=== PATIENT | male | born 1955 | race Caucasian/White ===

== ENCOUNTER → 2021-08-15 12:57 | Outpatient (CLI) | payer MEDICARE, SELFPAY ==
[2021-08-15 13:09] LABS: Basophils # 0.1 K/mm3 (0-0.2); Basophils % 1.1 % (0.1-2.0); Eosinophils # 0.4 K/mm3 (0.0-0.4); Eosinophils % 4.8 % (0.1-12.0); Hematocrit 47.4 % (42.0-52.0); Hemoglobin 16.3 g/dL (14.1-18.0); Lymphocytes % 35.3 % (10-50); Mean Corpuscular HGB Conc 34.5 g/dL (31.8-35.4); Mean Corpuscular Volume 89.8 fl (80-94); Mean Platelet Volume 9.9 fl (7.4-10.4); Monocytes # 0.4 K/mm3 (0.1-1.0); Monocytes % 5.3 % (1.7-9.3); Neutrophils # 4.5 K/mm3 (1.8-7.8); Neutrophils % 53.5 % (37.0-80.0); Platelet Count 158 K/mm3 (142-424); Red Blood Count 5.27 M/mm3 (4.60-6.20); Red Cell Distribution Width 13.6 % (11.5-17.5); White Blood Count 8.4 K/mm3 (4.8-10.8)
[2021-08-15 13:39] LABS: Alanine Aminotransferase 24 U/L (12-78); Albumin Level 4.4 g/dl (3.5-5.0); Alkaline Phosphatase 89 U/L (38-126); Anion Gap 12.3 mEq/L (5-15); Aspartate Amino Transferase 39 U/L (17-59); Bilirubin,Direct 0.8 mg/dl (0.0-0.4); Bilirubin,Indirect 0.1 mg/dL (0.0-0.9); Bilirubin,Total 0.9 mg/dl (0.2-1.3); Bilirubin,Unconjugated 0.1 mg/dL (0.0-1.1); Blood Urea Nitrogen 13 mg/dl (9-20); Calcium 9.4 mg/dl (8.4-10.2); Carbon Dioxide 29 mmol/L (22.0-30.0); Chloride 105 mmol/L (98-107); Chol/HDL Ratio 5.4 (1-3.5); Cholesterol 184 mg/dl (140-200); Estimated Glomerular Filt Rate 43 ml/min (>60); GFR (African American) 52 ML/MIN (>60); Glucose 98 mg/dl (74-100); HDL Cholesterol 34 mg/dl (40-60); Potassium 4.3 mmoL/L (3.5-5.1); Sodium 142 mmol/L (136-145); Total Protein,Serum 7.5 g/dl (6.3-8.2); Triglycerides 242 mg/dl (30-150); VLDL Cholesterol 48 mg/dL (0-40)
[2021-08-15 13:51] LABS: Direct LDL Cholesterol 110.95 mg/dL (100-129)
[2021-08-15 13:56] LABS: Free T4 (Free Thyroxine) 0.89 ng/dl (0.78-2.19)
[2021-08-15 13:57] LABS: C-Reactive Protein 0.7 mg/L (0-4)
[2021-08-15 14:11] LABS: Thyroid Stimulating Hormone 3.27 uIU/mL (0.465-4.68)
[2021-08-15 15:55] LABS: Erythrocyte Sedimentation Rate 12 mm/hr (0-20)
[2021-08-24 10:25] LABS: 1,25 Dihydroxy Vitamin D 52 pg/mL (.); 1,25-Dihydroxy, Vitamin D-2 <10 pg/mL (.); 1,25-Dihydroxy, Vitamin D-3 52 pg/mL (.)
== END ==
PROVIDERS: Visit Provider Internal Medicine
DX: R42 Dizziness and giddiness (principal); R55 Syncope and collapse; I10 Essential (primary) hypertension
CPT/HCPCS: 36415; 80048; 80061; 80076; 82652; 84439; 84443; 85025; 85651; 86140

== ENCOUNTER → 2021-08-15 14:17 | Outpatient (CLI) | payer MEDICARE, SELFPAY ==
--- NOTE | 2021-08-15 14:19 | CA_ITS ---
APPROVED REPORT Wheel Setter: SAHRA Laterality: Bilateral Study Quality: Good Indications: bilateral carotid bruits Risk Factors Hypertension: Hyperlipidemia CAD, Smoking Doppler Spectral Velocity Analysis ECA (R) 141.10/13.90 cm/s ECA (L) 252.80/13.70 cm/s dICA (R) 118.00/31.00 cm/s dICA (L) 68.40/21.20 cm/s Maria L (R) 140.10/37.40 cm/s Maria L (L) 242.10/52.90 cm/s pICA (R) 160.40/41.70 cm/s pICA (L) 149.00/16.70 cm/s dCCA (R) 106.60/21.90 cm/s dCCA (L) 93.40/23.10 cm/s pCCA (R) 104.00/17.30 cm/s pCCA (L) 84.00/21.00 cm/s Vert (R) 19.20/6.00 cm/s Vert (L) 71.00/16.70 cm/s ICA/CCA 1.53 ICA/CCA 2.88 Findings Duplex evaluation demonstrates antegrade flow of the bilateral Vertebral Arteries. B-Mode Ultrasound demonstrates moderate intraluminal plaque in the right internal Carotid Artery and severe in L ICA. Duplex evaluation demonstrates stenosis of the right proximal internal carotid artery in the range of 50-69% with PSV =140 cm/sec, EDV <100 cm/sec, and IC/CC Ratio <4.0. Duplex evaluation demonstrates stenosis of the left proximal internal carotid artery in the range of 70-99% with PSV =140 cm/sec, EDV =100 cm/sec, or IC/CC Ratio =4.0. Extensive plaque in R CCA and R carotid bulb with stenosis. Extensive plauque in L CCA which is near occlusion. High resistance waveform with turbulent flow in the left ICA suggest a high grade of stenosis that may be near occlusion. Conclusion Duplex evaluation demonstrates antegrade flow of the bilateral Vertebral Arteries. B-Mode Ultrasound demonstrates moderate intraluminal plaque in the right internal Carotid Artery and severe in L ICA. Duplex evaluation demonstrates stenosis of the right proximal internal carotid artery in the range of 50-69% with PSV =140 cm/sec, EDV <100 cm/sec, and IC/CC Ratio <4.0. Duplex evaluation demonstrates stenosis of the left proximal internal carotid artery in the range of 70-99% with PSV =140 cm/sec, EDV =100 cm/sec, or IC/CC Ratio =4.0. Extensive plaque in R CCA and R carotid bulb with stenosis. Extensive plauque in L CCA which is near occlusion. High resistance waveform with turbulent flow in the left ICA suggest a high grade of stenosis that may be near occlusion. Critical Notification Critical Value: Yes Physician Notified Date: 08/15/2021 Time: 1300 Physician Name: Rocío Irvin Response Time: 2min Report Read Back Electronically signed by : Eugenia Haddad MD 08/16/2021 16:51:24
== END ==
PROVIDERS: PCP Nurse Practitioner; Visit Provider Internal Medicine
DX: R09.89 Other specified symptoms and signs involving the circulatory and respiratory systems (principal); R42 Dizziness and giddiness; Z79.899 Other long term (current) drug therapy
CPT/HCPCS: 36415; 80048; 80061; 80076; 82652; 84439; 84443; 85025; 85651; 86140; 93880

== ENCOUNTER 2021-08-20 14:29 | Emergency (ER) | payer MEDICARE, SELFPAY ==
--- NOTE | 2021-08-20 14:28 | ECG_ITS ---
APPROVED REPORT Exam: Resting ECG HR:71 bpm ECG Measurements Heart Rate 71 AXES RI 166 P 18 QRSd 94 QRS 23 QT 416 T 40 QTc 452 Conclusion Electronic atrial pacemaker Nonspecific ST abnormality Abnormal ECG Electronically signed by : Mic Ann MD 08/21/2021 09:03:16
[2021-08-20 14:29] VITALS: BP 185/100; PULSE 69; RESP 16; TEMP 36.4; O2SAT 97; BMI 27.1
--- NOTE | 2021-08-20 14:30 | CT_ITS ---
PROCEDURE INFORMATION: Exam: CT Head Without Contrast Exam date and time: 08/20/2021 2:30 PM Age: 65 years old Clinical indication: Dizziness and weakness, extremity; Bilateral; Additional info: Syncope TECHNIQUE: Imaging protocol: Computed tomography of the head without contrast. Radiation optimization: All CT scans at this facility use at least one of these dose optimization techniques: automated exposure control; mA and/or kV adjustment per patient size (includes targeted exams where dose is matched to clinical indication); or iterative reconstruction. Other technique: STROKE PROTOCOL was implemented. COMPARISON: US CA CAROTID DUPLEX BI 08/15/2021 2:20 PM FINDINGS: Brain: There is moderate atrophy and chronic white matter microangiopathic changes. There are focal hypodensities of the anterior corpus callosum which raise the possibility of demyelinating disease. There is a similar lesion in the right splenium of the corpus callosum on axial image 38 and sagittal image 26. Cerebral ventricles: There is compensatory ventricular dilation. Paranasal sinuses: Visualized sinuses are unremarkable. No fluid levels. Mastoid air cells: Visualized mastoid air cells are well aerated. Vasculature: The vasculature demonstrates diffuse moderate atherosclerotic calcification. Bones/joints: Unremarkable. No acute fracture. Soft tissues: Unremarkable. IMPRESSION: 1. There are focal hypodensities of the anterior corpus callosum which raise the possibility of demyelinating disease. There is a similar lesion in the right splenium of the corpus callosum on axial image 38 and sagittal image 26. 2. No acute intracranial process is identified. ASSESSMENT: ASPECTS ([place] Stroke Program Early CT Score) is 10.
--- NOTE | 2021-08-20 14:41 | CT_ITS ---
PROCEDURE INFORMATION: Exam: CT Angiography Head With Contrast, Venography Exam date and time: 08/20/2021 2:41 PM Age: 65 years old Clinical indication: Cognitive deficit and dizziness and giddiness and weakness; Altered mental status; Additional info: Possible CVA TECHNIQUE: Imaging protocol: Computed tomography angiography of the head with contrast. Exam focused on the veins. 3D rendering (Not supervised by radiologist): MIP and/or 3D reconstructed images were created by the technologist. Radiation optimization: All CT scans at this facility use at least one of these dose optimization techniques: automated exposure control; mA and/or kV adjustment per patient size (includes targeted exams where dose is matched to clinical indication); or iterative reconstruction. Contrast material: ISOVUE; Contrast volume: 100 ml; Contrast route: INTRAVENOUS (IV); COMPARISON: CT HEAD/BRAIN WO CON 08/20/2021 2:44 PM FINDINGS: Limitations: The timing of the study is incorrect with optimal opacification of the pulmonary artery. There is virtually no contrast in the systemic arterial system in the chest. Cavernous Sinus: No thrombosis. Veins: No thrombosis. Brain: Faint contrast is seen in the intracranial vessels. There is fullness at the junction of the right anterior cerebral A1 and A2 segments with the anterior communicating artery on axial image 501 which could indicate a 4 mm aneurysm. There is no obvious large vessel territorial absence of perfusion, repeat study is strongly recommended. Cerebral ventricles: No ventriculomegaly. Soft tissues: Unremarkable. Aorta: The vasculature demonstrates diffuse moderate atherosclerotic calcification. IMPRESSION: 1. The timing of the study is incorrect with optimal opacification of the pulmonary artery. There is virtually no contrast in the systemic arterial system in the chest. 2. Faint contrast is seen in the intracranial vessels. There is fullness at the junction of the right anterior cerebral A1 and A2 segments with the anterior communicating artery on axial image 501 which could indicate a 4 mm aneurysm. 3. There is no obvious large vessel territorial absence of perfusion, repeat study is strongly recommended.
--- NOTE | 2021-08-20 14:43 | PC.NURSE ---
Pt to rad.
[2021-08-20 14:47] LABS: Basophils # 0.1 K/mm3 (0-0.2); Basophils % 0.6 % (0.1-2.0); Eosinophils # 0.2 K/mm3 (0.0-0.4); Eosinophils % 1.6 % (0.1-12.0); Hematocrit 50.4 % (42.0-52.0); Hemoglobin 17.1 g/dL (14.1-18.0); Lymphocytes # 1.6 K/mm3 (0.7-4.5); Lymphocytes % 12.8 % (10-50); Mean Corpuscular Hemoglobin 31.2 pg (27.0-31.2); Mean Corpuscular Volume 91.9 fl (80-94); Mean Platelet Volume 10.1 fl (7.4-10.4); Monocytes # 0.7 K/mm3 (0.1-1.0); Monocytes % 6.1 % (1.7-9.3); Neutrophils # 9.6 K/mm3 (1.8-7.8); Neutrophils % 78.9 % (37.0-80.0); Platelet Count 164 K/mm3 (142-424); Red Blood Count 5.48 M/mm3 (4.60-6.20); Red Cell Distribution Width 13.8 % (11.5-17.5); White Blood Count 12.2 K/mm3 (4.8-10.8)
[2021-08-20 14:59] LABS: Alanine Aminotransferase 17 U/L (12-78); Albumin Level 4.7 g/dl (3.5-5.0); Albumin/Globulin Ratio 1.2 (1.1-1.8); Alkaline Phosphatase 92 U/L (38-126); Anion Gap 12.7 mEq/L (5-15); Aspartate Amino Transferase 31 U/L (17-59); Bilirubin,Total 1.9 mg/dl (0.2-1.3); Blood Urea Nitrogen 16 mg/dl (9-20); Calcium 9.7 mg/dl (8.4-10.2); Carbon Dioxide 31 mmol/L (22.0-30.0); Chloride 98 mmol/L (98-107); Creatinine Clearance Estimated 42 mL/min (50-200); Estimated Glomerular Filt Rate 30 ml/min (>60); GFR (African American) 36 ML/MIN (>60); Globulin 3.8 g/dL (1.3-3.2); Glucose 126 mg/dl (74-100); Potassium 3.7 mmoL/L (3.5-5.1); Sodium 138 mmol/L (136-145); Total Protein,Serum 8.5 g/dl (6.3-8.2)
[2021-08-20 15:01] VITALS: BP 199/96; PULSE 86; RESP 20; O2SAT 95
--- NOTE | 2021-08-20 15:02 | PC.NURSE ---
pt returned from CT. FSBS was 119 [address]
--- NOTE | 2021-08-20 15:02 | PC.NURSE ---
Pt returned from rad.
[2021-08-20 15:11] LABS: Troponin I 0.02 ng/ml (0.00-0.034)
[2021-08-20 15:30] VITALS: BP 192/109; PULSE 62; RESP 22; O2SAT 96
--- NOTE | 2021-08-20 15:32 | PC.NURSE ---
speaking with SHAINA
--- NOTE | 2021-08-20 15:35 | PC.WOUNDNOTE ---
calling [employer] at this time.
--- NOTE | 2021-08-20 15:49 | HMH.EDGENADL ---
ED Disposition Clinical Impression: Vertigo Disposition: Xfer Other Condition on Discharge: Fair Referrals: Provider,Referral, [Primary Care Provider] - - Critical Care Critical Care Time: Yes (15 min) Attestation: On 08/20/21, the high probability of a clinically significant, sudden or life threatening deterioration of the following system(s) required my full and direct attention, intervention and personal management. The time I documented below is in addition to time spent performing reported procedures but includes the following listed in this critical care notation. Total Critical Care Time: 15 Vital system(s) involved:: Central Nervous System My critical care processes included: Assessment & monitoring of V/S, Initial and Re-exams, Data Review/Interpretation, Coordinating Care, Medication Orders and management, Documentation Medical Decision Making - Kimo Inquiry Pt receiving controlled substance: No Vital Signs: 08/20/21 14:29 Temperature 97.5 F L Temperature Source Oral Pulse Rate [Right] 69 Respiratory Rate 16 Blood Pressure [Right Arm] 185/100 H Blood Pressure Mean [Right Arm] 128 Blood Pressure Source [Right Arm] Automatic Cuff Blood Pressure Position [Right Arm] Sitting 02 Sat by Pulse Oximetry 97 Oxygen Delivery Method Room Air - Lab Data Lab Results 08/20/21 14:40: WBC 12.2 H, RBC 5.48, Hgb 17.1, Hct 50.4, MCV 91.9, MCH 31.2, MCHC 34.0, RDW 13.8, Plt Count 164, MPV 10.1, Neut % (Auto) 78.9, Lymph % (Auto) 12.8, Nash % (Auto) 6.1, Eos % (Auto) 1.6, Baso % (Auto) 0.6, Neut # (Auto) 9.6 H, Lymph # (Auto) 1.6, Nash # (Auto) 0.7, Eos # (Auto) 0.2, Baso # (Auto) 0.1 08/20/21 14:40: Sodium 138, Potassium 3.7, Chloride 98, Carbon Dioxide 31 H, Anion Gap 12.7, BUN 16, Creatinine 2.20 H, Estimated Creat Clear 42, Estimated GFR 30 L, Est GFR ( Amer) 36 L, Glucose 126 H, Calcium 9.7, Total Bilirubin 1.9 H, AST 31, ALT 17, Alkaline Phosphatase 92, Troponin I 0.02, Total Protein 8.5 H, Albumin 4.7, Globulin 3.8 H, Albumin/Globulin Ratio 1.2 Result diagrams: 08/20/21 14:40 08/20/21 14:40 Orders (Tests/Meds): ED MEDICATIONS Discontinued Medications Generic Name Dose Route Start Last Admin Trade Name Billq PRN Reason Stop Dose Admin Iopamidol 100 ml 08/20/21 15:13 08/20/21 15:14 Iopamidol-370 (76%);100ml Bottle IV 08/20/21 15:14 100 ml ONCE ONE Administration Sodium Chloride 10 ml 08/20/21 15:13 08/20/21 15:14 Sodium Chloride 0.9% 10ml Syr (Rad Only) IV 08/20/21 15:14 10 ml ONCE ONE Administration Sodium Chloride 50 ml 08/20/21 15:13 08/20/21 15:14 0.9 % Sodium Chloride 50 Ml Vial IV 08/20/21 15:14 50 ml ONCE ONE Administration ORDERS Category Date Time Status CT angio neck Stat Cat Scan 08/20/21 14:41 Taken Rapid PCR Covid and Flu A/B Stat Lab 08/20/21 14:40 Ordered Troponin I Q3H Lab 08/20/21 17:45 Ordered Troponin I Q3H Lab 08/20/21 20:45 Ordered Medical Decision Narrative: In summary, the patient is a 65-year-old male with metabolic syndrome who presents for evaluation of vertigo, alteration in mental status and transient right arm numbness, syncope. He is in no acute distress, afebrile and hemodynamically stable, nontoxic in appearance. Physical exam demonstrates a disoriented male with positive test of skew in the right eye, negative head impulse testing, no nystagmus, normal sensory and motor exam, normal cardiopulmonary exam, soft nontender abdomen. Differential diagnosis includes but not limited to cardiogenic or neurogenic syncope, electrolyte abnormality, YUMI, acute embolic or hemorrhagic stroke, other acute intracranial abnormality. Will obtain emergent CT and CTA of the head and neck, broad laboratory analysis and reassess clinically. Fingerstick blood glucose on initial evaluation is normal, patient is hypertensive with systolic blood pressure in the 170s 180s but is otherwise hemodynamically stable. Reassessment: Haseeb
--- NOTE | 2021-08-20 15:49 | PC.NURSE ---
[place] 2 checking flight status
--- NOTE | 2021-08-20 15:51 | PC.NURSE ---
susans aware that if flight is declined they will need to transport pt.
--- NOTE | 2021-08-20 15:58 | PC.NURSE ---
advised pt's b/p is ok at this time and he didn't want it lowered too quickly.
[2021-08-20 16:00] VITALS: BP 194/104; PULSE 72; RESP 24; O2SAT 95
--- NOTE | 2021-08-20 16:00 | PC.NURSE ---
Calling report to [facility]
[2021-08-20 16:16] VITALS: BP 196/106; PULSE 87; RESP 16; TEMP 36.8; O2SAT 98
== END 2021-08-20 16:34 | disposition short-term general hospital (02) ==
PROVIDERS: Emergency Provider Student in an Organized Health Care Education/Training Program; PCP Nurse Practitioner
DX: R42 Dizziness and giddiness (principal); I25.10 Atherosclerotic heart disease of native coronary artery without angina pectoris; I10 Essential (primary) hypertension; I65.23 Occlusion and stenosis of bilateral carotid arteries; F17.210 Nicotine dependence, cigarettes, uncomplicated; Z79.899 Other long term (current) drug therapy
CPT/HCPCS: 70450; 70496; 70498; 80053; 84484; 85025; 93005; 99284; Q9967

== ENCOUNTER 2022-07-18 11:35 | Inpatient (IN) | payer MEDICARE, SELFPAY ==
[2022-07-18 11:43] VITALS: BP 185/87; PULSE 73; RESP 18; TEMP 36.3; O2SAT 99; BMI 28.1
--- NOTE | 2022-07-18 11:51 | PC.NURSE ---
pt arrived to the floor at this time
--- NOTE | 2022-07-18 12:51 | PC.NURSE ---
Unable to complete med rec, pt doesn't know what he takes
[2022-07-18 13:57] LABS: Coronavirus 19, PCR Not Detected (NotDetected); Influenza A, PCR Not Detected (NotDetected); Influenza B, PCR Not Detected (NotDetected)
--- NOTE | 2022-07-18 14:02 | PC.NURSE ---
Pt is a poor historian, admission completed to the best of my ability
[2022-07-18 14:15] VITALS: BP 164/63
--- NOTE | 2022-07-18 14:56 | US_ITS ---
PROCEDURE INFORMATION: Exam: US Retroperitoneal; Complete; Kidneys and Bladder Exam date and time: 07/18/22 04:19 PM Age: 66 years old Clinical indication: Other: Hypertension; Additional info: Malignant HTN, ckd TECHNIQUE: Imaging protocol: Real-time ultrasound of the retroperitoneum with image documentation. Complete exam focused on the kidneys and bladder. COMPARISON: US CA RENAL ARTERY DUPLEX 07/18/22 03:34 PM FINDINGS: Gallbladder: Cholelithiasis. Right kidney: Right kidney measures 11.5 cm longitudinally. Increased renal cortical echotexture with cortical thinning consistent with medical renal disease. Left kidney: Left kidney measures 13.7 cm longitudinally. Urinary bladder: Unremarkable. IMPRESSION: 1. Increased renal cortical echotexture with cortical thinning on the right. Unilateral finding, consider renovascular versus medical renal etiology. 2. Incidental cholelithiasis.
--- NOTE | 2022-07-18 14:56 | CA_ITS ---
FINAL REPORT CLINICAL HISTORY: malignant HTN,SMOKER,CVA FINDINGS: Aorta velocity: 82 cm/sec Right kidney: 10.1 cm. No evidence of hydronephrosis or mass. Right intrarenal RI: 0.63 Right renal artery velocity: 148 cm/sec. Right RAR (Renal artery-Aortic Ratio): 1.8 Left Kidney: 12.7 cm. No evidence of hydronephrosis or mass. Left intrarenal RI: 0.70 Left renal artery velocity: 347 cm/sec. Left RAR (Renal Artery-Aortic Ratio): 4.21 Incidental note of gallstones. IMPRESSION: Greater than 60% left renal artery stenosis. Recommend CTA or MRA. Less than 60% right renal artery stenosis. Incidental cholelithiasis. Reviewed, Interpreted and Dictated by Torres Eason MD Transcribed by Julio Duff Authenticated and [facility]
--- NOTE | 2022-07-18 15:08 | EXP.CARD.PN ---
Subjective Subjective Date: 07/18/22 Time: 15:08 Principal diagnosis: Malignant hypertension Interval history: Cardiology office note from earlier today: pt here for overdue follow up. CAD is present and likely stable. Hx of [place] to LAD and diagonal arteries. On ASA. Denies cp & pressure Denies SOB Dizziness & lightheadedness present pretty constant now, blurry vision present at times. He states he is feeling really bad right now and he hasn't had his BP meds for several days. Hx of subclavian artery stenosis with stenting. JESUS ALBERTO is present. hx of right carotid stent. Hx of carotid endarectomy in 09/2021 at , we have requested the report. BP is too high today. Weight is up 6 pounds. LDL goal is < 55, LDL is not on file. PPM in place and D/L today showed: AP 73%, AT/AF [place] <1%, no events, battery life of 28 months. DM is present and followed by PCP. Tobacco user. Tobacco cessation advised. EKG is A-pacing, possible inferior infarct, age undetermined, rate is 81 bpm. Due to the patient's malignant HTN will get him admitted to Dr. Keller to get better control of BP. Exam Data for Last 24 hours Vital signs and Labs for Last 24 Hours: Temp Pulse Resp BP Pulse Ox 97.3 F L 73 18 185/87 H 99 07/18/22 11:43 07/18/22 11:43 07/18/22 11:43 07/18/22 11:43 07/18/22 11:43 I & O for Last 24 hours: Intake & Output 07/16/22 07/17/22 07/18/22 07/19/22 11:59 11:59 11:59 11:59 Weight 207 lb 6 oz Constitutional Constitutional: no acute distress *Routine Respiratory Exam Respiratory: Present CTA bilaterally *Routine Cardiovascular Exam Cardiovascular: Present RRR *Routine Extremities Exam Extremities: Absent edema Progress Note: A&P Assessment and plan (1) Malignant hypertension: Status: Acute (2) Carotid artery stenosis: Status: Chronic (3) Bilateral carotid bruits: Status: Chronic (4) CAD (coronary artery disease): Status: Chronic (5) HTN (hypertension): Status: Chronic (6) HLD (hyperlipidemia): Status: Chronic (7) Pacemaker: Status: Acute Assessment and Plan Assessment and Plan for All Diagnoses:: 1. Patient admitted for malignant hypertension. Resume home medication of carvedilol 25 mg twice daily. Will assess renal status and decide on continuing lisinopril or not. We will give additional antihypertensive in the form of amlodipine 5 mg twice daily. Will check renal ultrasound and duplex for renal artery stenosis. 2. Peripheral vascular disease with history of subclavian artery stenosis and carotid artery stenosis. Coronary artery disease with history of coronary stenting continue Plavix 75 mg daily. 3. History of GERD, continue PPI therapy 4. History of CKD, await BMP
[2022-07-18 15:41] LABS: Basophils # 0.1 K/mm3 (0-0.2); Basophils % 1.9 % (0.1-2.0); Eosinophils # 0.4 K/mm3 (0.0-0.4); Hemoglobin 15.9 g/dL (14.1-18.0); Lymphocytes # 2.7 K/mm3 (0.7-4.5); Lymphocytes % 36.9 % (10-50); Mean Corpuscular HGB Conc 35.3 g/dL (31.8-35.4); Mean Corpuscular Hemoglobin 31.5 pg (27.0-31.2); Mean Corpuscular Volume 89.2 fl (80-94); Mean Platelet Volume 10.2 fl (7.4-10.4); Monocytes # 0.5 K/mm3 (0.1-1.0); Monocytes % 6.3 % (1.7-9.3); Neutrophils # 3.5 K/mm3 (1.8-7.8); Neutrophils % 48.9 % (37.0-80.0); Platelet Count 147 K/mm3 (142-424); Red Blood Count 5.05 M/mm3 (4.60-6.20); Red Cell Distribution Width 13.6 % (11.5-17.5); White Blood Count 7.3 K/mm3 (4.8-10.8)
[2022-07-18 15:52] LABS: Chloride 104 mmol/L (98-107); Sodium 141 mmol/L (136-145)
[2022-07-18 15:53] LABS: Potassium 3.8 mmoL/L (3.5-5.1)
[2022-07-18 15:56] LABS: Anion Gap 12.8 mEq/L (5-15); Blood Urea Nitrogen 13 mg/dl (9-20); Calcium 8.5 mg/dl (8.4-10.2); Carbon Dioxide 28 mmol/L (22.0-30.0); Chol/HDL Ratio 7.4 (1-3.5); Cholesterol 214 mg/dl (140-200); Creatinine Clearance Estimated 86 mL/min (50-200); Estimated Glomerular Filt Rate 67 ml/min (>60); GFR (African American) 81 ML/MIN (>60); Glucose 97 mg/dl (74-100); HDL Cholesterol 29 mg/dl (40-60)
[2022-07-18 16:00] VITALS: BP 163/66; PULSE 64; RESP 16; TEMP 36.8; O2SAT 96
[2022-07-18 16:05] LABS: Triglycerides 809 mg/dl (30-150)
[2022-07-18 16:07] LABS: Direct LDL Cholesterol 86.63 mg/dL (100-129)
--- NOTE | 2022-07-18 16:12 | PC.NURSE ---
Pt was a direct admit for malignant hypertension. BP was 185/87 on admission. 25mg coreg po and 10mg lisinopril po administered shortly after admission. BP on reassessment was 164/93. He is alert and oriented x4. Lungs are clear, he remains on RA with no distress. He denies cp or sob. Heart has a regular rate and rhythm. Med rec completed using external medication list. Pt says he is unsure what he is prescribed. He also states that he quit taking his meds a while ago because he had trouble walking. He is currently resting in bed watching tv. Bed is locked and in the lowest position, call light is within reach.
[2022-07-18 16:14] LABS: T4 (Thyroxine) 8.1 ug/dl (5.53-11.0)
[2022-07-18 16:27] LABS: Thyroid Stimulating Hormone 2.44 uIU/mL (0.465-4.68)
[2022-07-18 16:57] LABS: Free Thyroxine Index 2.3 ug/dL (5.93-13.13); Triiodothryronine (T3) Uptake 28 % (23.5-40.5)
--- NOTE | 2022-07-18 18:37 | PC.NURSE ---
I just assisted pt to the bsc to have a bm. While cleaning pt up and assisting her back to the chair she stated that she thinks she's hallucinating. She reports seeing clowns, a man who is trying to hurt her and possibly others. I reoriented pt and assured her that she was safe and that no one was going to harm her here. Her spouse is at bedside and attempting to comfort her as well.
--- NOTE | 2022-07-18 19:45 | PC.NURSE ---
1944 was noted that pt was not in room when making rounds, pt had left floor and went outside to smoke, pts went with him, tech went to find pt and he was outside in front of hospital, upon return to floor pt was instructed to remain in his room, on floor, also instructed pt on smoking effects on high blood pressure, pt verbalized understanding, dr breaux made aware of pt leaving floor without notifying staff, order for ativan received 0.5mg pt x1 dose repeated and verified.
[2022-07-18 20:00] VITALS: BP 142/86; PULSE 73; RESP 19; TEMP 36.7; O2SAT 94
[2022-07-19] VITALS (21 sets, daily range): BP systolic 119–197; BP diastolic 61–97; PULSE 60–80; RESP 16–19; TEMP 36.4–36.8; O2SAT 92–97; BMI 28.0
--- NOTE | 2022-07-19 04:54 | PC.NURSE ---
pt slept most of the night after ativan dose given as ordered, no acute distress, VSS, lungs CTA bilaterally, heart RRR, abd soft non distended, pt voiding without difficulty, pt without edema, alert and oriented x4, skin pwd, pts at bedside, it was noted at beginning of shift that pt left the floor to go outside and did not inform nursing staff, pt educated on the risks of smoking and hypertension, and instructed that going outside is not warranted at this time. pt states that he did smoke when he went outside, pt refuses nicotine patch, no other issues or concerns at this time,
[2022-07-19 06:57] LABS: Anion Gap 12.5 mEq/L (5-15); Blood Urea Nitrogen 14 mg/dl (9-20); Calcium 8.7 mg/dl (8.4-10.2); Carbon Dioxide 26 mmol/L (22.0-30.0); Chloride 105 mmol/L (98-107); Creatinine Clearance Estimated 72 mL/min (50-200); Estimated Glomerular Filt Rate 55 ml/min (>60); GFR (African American) 66 ML/MIN (>60); Glucose 93 mg/dl (74-100); Potassium 3.5 mmoL/L (3.5-5.1); Sodium 140 mmol/L (136-145)
--- NOTE | 2022-07-19 07:28 | P.CONPHA_ITS ---
[facility] Pharmacy VTE Monitoring Patient Demographics Admission date: 07/18/22 Report Date: 07/19/22 Time: : Patient Allergies No Known Allergies Allergy (Verified 07/18/22 11:18) Height: 1.83 m Weight: 94 kg VTE Risk Labs: VTE Related Lab Results Hgb 15.9 g/dL (14.1-18.0) 07/18/22 15:24 Hct 45.0 % (42.0-52.0) 07/18/22 15:24 Plt Count 147 K/mm3 (142-424) 07/18/22 15:24 BUN 14 mg/dl (9-20) 07/19/22 06:22 Creatinine 1.30 mg/dl (0.66-1.25) H 07/19/22 06:22 Estimated Creat Clear 72 mL/min (50-200) 07/19/22 06:22 Was VTE Risk Assessment Performed: Yes VTE Score: 4 VTE Risk Level: Low Risk Prophylaxis VTE Prophylaxis Ordered?: Yes Types of VTE Prophylaxis: TEDS Knee High Location of Applied Device: Bilateral Lower Extremeties
--- NOTE | 2022-07-19 10:01 | HMH.PHAINT1 ---
Pharmacy Intervention Comments: Home medication reconciliation completed using outpatient pharmacy list, med rec from office visit on 07/18/22 and interview with patient.
--- NOTE | 2022-07-19 10:29 | EXP.CARD.PN ---
Subjective Subjective Date: 07/19/22 Time: 10:29 Principal diagnosis: Malignant hypertension Interval history: 66-year-old white male in bed in no acute distress. Patient denies any chest pain, pressure or tightness overnight. Tolerating medication well with blood pressure control improved to the 120-140 mmHg range systolic. Discussed the results of renal ultrasound demonstrating left renal artery stenosis of greater than 60% with the patient who has a initially declined further treatment at this time. Discussed with Dr. Irvin who will come talk to the patient about having it done while he is here Exam Data for Last 24 hours Vital signs and Labs for Last 24 Hours: Temp Pulse Resp BP Pulse Ox 97.6 F 71 17 143/76 H 92 L 07/19/22 08:00 07/19/22 08:00 07/19/22 08:00 07/19/22 08:00 07/19/22 08:00 Laboratory Results - last 24 hr 07/18/22 13:50: SARS-CoV-2 (PCR) Not detected, Influenza A Untype (PCR) Not detected, Influenza Type B (PCR) Not detected 07/18/22 15:24: WBC 7.3, RBC 5.05, Hgb 15.9, Hct 45.0, MCV 89.2, MCH 31.5 H, MCHC 35.3, RDW 13.6, Plt Count 147, MPV 10.2, Neut % (Auto) 48.9, Lymph % (Auto) 36.9, [place] % (Auto) 6.3, Eos % (Auto) 6.0, Baso % (Auto) 1.9, Neut # (Auto) 3.5, Lymph # (Auto) 2.7, [place] # (Auto) 0.5, Eos # (Auto) 0.4, Baso # (Auto) 0.1 07/18/22 15:24: Sodium 141, Potassium 3.8, Chloride 104, Carbon Dioxide 28, Anion Gap 12.8, BUN 13, Creatinine 1.10, Estimated Creat Clear 86, Estimated GFR 67, Est GFR ( Amer) 81, Glucose 97, Calcium 8.5 07/18/22 15:24: Triglycerides 809 H, Cholesterol 214 H, LDL Cholesterol Direct 86.63 L, HDL Cholesterol 29 L, Cholesterol/HDL Ratio 7.4 H 07/18/22 15:24: TSH 2.44, Free T4 Index 2.3 L, Thyroxine (T4) 8.1, T3 Uptake 07/19/22 06:22: Sodium 140, Potassium 3.5, Chloride 105, Carbon Dioxide 26, Anion Gap 12.5, BUN 14, Creatinine 1.30 H, Estimated Creat Clear 72, Estimated GFR 55 L, Est GFR ( Amer) 66, Glucose 93, Calcium 8.7 I & O for Last 24 hours: Intake & Output 07/16/22 07/17/22 07/18/22 07/19/22 11:59 11:59 11:59 11:59 Intake Total 480 / 480 Output Total 300 / 300 Balance 180 / 180 Weight 207 lb 6 oz 207 lb 3.752 oz Constitutional Constitutional: no acute distress *Routine Respiratory Exam Respiratory: Present rhonchi *Routine Cardiovascular Exam Cardiovascular: Present RRR Progress Note: A&P Assessment and plan (1) Malignant hypertension: Status: Acute (2) Carotid artery stenosis: Status: Chronic (3) Bilateral carotid bruits: Status: Chronic (4) CAD (coronary artery disease): Status: Chronic (5) HTN (hypertension): Status: Chronic (6) HLD (hyperlipidemia): Status: Chronic (7) Pacemaker: Status: Acute (8) Left renal artery stenosis: Status: Acute (9) Hypertriglyceridemia: Status: Acute Assessment and Plan Assessment and Plan for All Diagnoses:: 1. Patient admitted for malignant hypertension. Improved control on Coreg 25 mg twice daily and Norvasc 5 mg daily. 2. Peripheral vascular disease with history of subclavian artery stenosis and carotid artery stenosis. Medical therapy recommended, 08/2021. 3. Coronary artery disease with history of coronary stenting, continue Plavix 75 mg daily. 4. History of GERD, continue PPI therapy 5. History of CKD with left renal artery stenosis by ultrasound, creatinine currently 1.1-1.3. We will hold off on lisinopril at this time. Dr. Irvin discussed need for renal angiogram in conjunction with blood pressure management. Patient agreed to proceed with renal angiogram today. Plan to keep him overnight to monitor his blood pressure post stenting with plans to discharge home tomorrow. 6. Hypertriglyceridemia and dyslipidemia. Resume fenofibrate.
--- NOTE | 2022-07-19 13:00 | IR_ITS ---
APPROVED REPORT Patient Location: Inpatient Metal Floor[employer] Installer: LEILA Greenberg RT (R) PROCEDURES Bilateral selective renal angiography Bare-metal stent deployment to the right renal artery Bare-metal stent deployment to the left renal artery INDICATION Abnormal renal duplex, Renal artery stenosis, Malignant hypertension, Renovascular hypertension Informed consent was obtained prior to the procedure. COMPLICATIONS None Estimated Blood Loss: Less than 10 mls TECHNIQUE 1% lidocaine used to anesthetize the right femoral groin. The right femoral artery was accessed via the Seldinger technique. A 4 Turkish sheath was placed in the right femoral artery. The JR4 catheter was used to selectively intubate each renal artery. At the end the diagnostic procedure the 4 Turkish sheath was exchanged for a 7 Turkish sheath and therapeutic heparin was administered giving a therapeutic ACT. A short 7 Turkish HAMILTON guide catheter was placed in the right renal artery followed by a Choice PT extra-support wire. A 6 mm x 15 mm bare-metal Herculink stent was deployed at 14 cassi reducing the severe stenosis to 0% excellent angiographic results were obtained. This procedure was repeated in the left kidney using a 6.5 x 15 mm Herculink stent deployed at 18 cassi. Excellent angiograph results were obtained with wide patency of both renal arteries at the end the procedure. At the end the procedure the apparatus was removed the groin is reprepped closure change sheath was removed and hemostasis achieved using Perclose device patient was transferred the postop putting in stable addition ANGIOGRAPHIC RESULTS Right renal artery has an ostial 90% stenosis Left renal artery has an ostial 70% hazy stenosis IMPRESSION Severe bilateral renal artery stenosis Successful stenting of the right and left renal artery severe disease reduced to 0% with 1 bare-metal stent placed in each renal artery PLAN 1. Dual antiplatelet for 1 month then discontinuation of Plavix 2. Restart JORY inhibitor's as blood pressure will allow 3. Continue with carvedilol 4. Continue risk factor modification Electronically signed by : Cain Irvin MD 07/19/2022 12:32:29
[2022-07-19 13:03] LABS: CATHL Activated Clotting Time 261 SEC (74-125)
--- NOTE | 2022-07-19 13:05 | EXP.HP ---
History of Present Illness *Admission Date: 07/18/22 *Reason for visit:: HTN *History of present illness: 66-year-old male patient admitted from cardiology clinic for dizziness & lightheadedness present pretty constant now, blurry vision present at times. He states he is feeling really bad right now and he hasn't had his BP meds for several days. Blood pressure this morning 140s/70s, he denies any chest pain, shortness of breath, dizziness, or lightheadedness. is present in room Hx of [facility]clavian [facility] [place] [facility] PFSH PFS Medical History (Updated 07/19/22 @ 10:35 by GLORIA Sanabria) Bilateral carotid bruits CAD (coronary artery disease) Cerebrovascular accident (CVA) Chest pain Dizziness HLD (hyperlipidemia) HTN (hypertension) Pacemaker Subclavian arterial stenosis Syncope Surgical History (Updated 07/18/22 @ 14:01 by Valery Grey, RN) H/O cardiac catheterization History of permanent cardiac pacemaker placement Family History (Updated 07/18/22 @ 14:01 by Valery Grey, RN) Other No significant family history Social History (Updated 07/18/22 @ 14:02 by Valery Grey, RN) Smoking Status: Current every day smoker alcohol intake: never substance use type: denies use current occupational status: retired and other Travel in the last 8 weeks: Inside the [place] household members: spouse housing: house Review of Systems Constitutional Constitutional: Reports system reviewed and no additional complaints, except as documented, Reports fatigue and Reports headache(s) Eyes Eyes: Reports blurry vision and Reports change in vision ENT Ears, Nose, Mouth, and Throat: Reports system reviewed and no additional complaints, except as documented, Reports dizziness, Reports headache(s) and Denies tongue swelling *Cardiovascular Cardiovascular: Reports system reviewed and no additional complaints, except as documented, Denies chest pain at rest and Denies dyspnea *Respiratory Respiratory: Reports system reviewed and no additional complaints, except as documented and Denies dyspnea *Gastrointestinal Gastrointestinal: Reports system reviewed and no additional complaints, except as documented, Denies change in stool character and Denies nausea *Genitourinary Genitourinary: Reports system reviewed and no additional complaints, except as documented *Musculoskeletal Musculoskeletal: Reports system reviewed and no additional complaints, except as documented and Denies arthralgias Integumentary/Breasts Skin/Breast: Reports system reviewed and no additional complaints, except as documented and Denies jaundice *Neurologic Neurologic: Reports system reviewed and no additional complaints, except as documented, Reports dizziness and Reports headache(s) Psychiatric Psychiatric: Reports system reviewed and no additional complaints, except as documented Endocrine Endocrine: Reports system reviewed and no additional complaints, except as documented, Denies cold intolerance, Reports fatigue and Denies heat intolerance Hematologic/Lymphatic Hematologic/Lymphatic: Reports system reviewed and no additional complaints, except as documented and Denies easy bleeding Allergic/Immunologic Allergic/Immunologic: Reports system reviewed and no additional complaints, except as documented, Denies GI upset with certain foods and Denies tongue swelling Meds Home Medications and Allergies Home Medications Medication Instructions Recorded Confirmed Type cholecalciferol (vitamin D3) 1,250 1,250 mcg PO DAILY Supplement 08/15/21 07/19/22 History mcg (50,000 unit) capsule pantoprazole 40 mg tablet,delayed 40 mg PO DAILY acid reflux 08/15/21 07/18/22 History release tamsulosin 0.4 mg capsule 0.4 mg PO DAILY benign prostatic 08/15/21 07/18/22 History hyperplasia clopidogrel 75 mg tablet 75 mg PO DAILY Blood thinner 09/06/21 07/18/22 History amlodipine 5 mg tablet (Norvasc) 5
--- NOTE | 2022-07-19 15:20 | CT_ITS ---
FINAL REPORT TECHNIQUE: Axial images of the head was performed by computed tomography. Sagittal and coronal reformatted images were obtained and reviewed. This study was performed with techniques to keep radiation doses as low as reasonably achievable (ALARA). Individualized dose reduction techniques using automated exposure control or adjustment of mA and/or kV according to the patient's size were employed. CLINICAL HISTORY: angioedema hx of stroke COMPARISON: 08/20/2021 FINDINGS: There is a chronic lacunar infarct in the left frontal periventricular white matter. There are moderate chronic microvascular changes. No abnormal density is seen. Ventricles are normal. There is no hemorrhage. No mass effect is seen. Bone windows show no evidence of fracture. IMPRESSION: Chronic changes without acute findings. Reviewed, Interpreted and Dictated by Torres Eason MD Transcribed by Veronica Kaufman Authenticated and [facility]
--- NOTE | 2022-07-19 18:40 | PC.NURSE ---
Pt is A/Ox4. He went [facility] and had 2 stents placed. When he came back from [facility] he slept for about two hours. He woke up with his tongue swollen, mumbled speech, and stated that he feels like he cannot swoller . Robbie Reyes was called looked at the patient. He was given 50 mg of benadryl, and 125mg of solumedrol IV. He since has seem to subside. Did a bedside swallow with him, and he tolerated water well. So I allowed him to eat and has tolerated fine. He has ambulated to the bathroom and had a BM. He has a right femoral site and it is clean, dry, and intact. His is at bedside with him. Pt is hard of hearing.
[2022-07-20] VITALS (26 sets, daily range): BP systolic 128–181; BP diastolic 66–96; PULSE 59–720; RESP 16–20; TEMP 36.5–36.9; O2SAT 90–96; BMI 28.7
--- NOTE | 2022-07-20 04:38 | PC.NURSE ---
pt rested well through the night, no acute distress, respiratory with lungs cta bilaterally, 02 sats 91-92 on room air, heart RRR, abd soft, voiding without difficulty, no edema, pt is alert and oriented x4; VSS, no other issues or concerns at this time, b/p's with sbp's 135-158 and diastolics 69-78
--- NOTE | 2022-07-20 05:40 | PC.NURSE ---
Addendum entered by Lesvia Perdomo RN 07/20/22 06:55: pt denies any issues with previous tongue swelling, pt denies any difficulty in swallowing, pt has eaten without difficulty through the night Original Note: pt states voiding without difficulty, pt is not using urinal, pt ambulates by self to bathroom to void, pt stated he is voiding without difficulty.
[2022-07-20 06:48] LABS: Anion Gap 13.9 mEq/L (5-15); Blood Urea Nitrogen 15 mg/dl (9-20); Calcium 9.2 mg/dl (8.4-10.2); Carbon Dioxide 24 mmol/L (22.0-30.0); Chloride 104 mmol/L (98-107); Creatinine Clearance Estimated 69 mL/min (50-200); Estimated Glomerular Filt Rate 50 ml/min (>60); GFR (African American) 61 ML/MIN (>60); Glucose 193 mg/dl (74-100); Potassium 3.9 mmoL/L (3.5-5.1); Sodium 138 mmol/L (136-145)
--- NOTE | 2022-07-20 08:24 | EXP.CARD.PN ---
Subjective Subjective Date: 07/20/22 Time: 08:24 Principal diagnosis: Malignant hypertension Interval history: 66-year-old white male in bed in no acute distress. Feeling of swollen tongue and difficulty swallowing has resolved overnight. CTA of the head showed no acute changes but with chronic lacunar infarct in the left frontal periventricular white matter. Moderate chronic microvascular changes. Creatinine today is 1.4. Blood pressure overnight is in the 130-160 mmHg systolic range. Exam Data for Last 24 hours Vital signs and Labs for Last 24 Hours: Temp Pulse Resp BP Pulse Ox 97.7 F 78 18 135/75 91 L 07/20/22 03:53 07/20/22 03:53 07/20/22 03:53 07/20/22 03:53 07/20/22 03:53 Laboratory Results - last 24 hr 07/19/22 12:19: Activated Clotting Time 261 H* 07/20/22 06:14: Sodium 138, Potassium 3.9, Chloride 104, Carbon Dioxide 24, Anion Gap 13.9, BUN 15, Creatinine 1.40 H, Estimated Creat Clear 69, Estimated GFR 50 L, Est GFR ( Amer) 61, Glucose 193 H D, Calcium 9.2 I & O for Last 24 hours: Intake & Output 07/17/22 07/18/22 07/19/22 07/20/22 11:59 11:59 11:59 11:59 Intake Total 480 / 480 240 / 240 Output Total 300 / 300 300 / 300 Balance 180 / 180 -60 / -60 Weight 207 lb 6 oz 207 lb 3.752 oz 212 lb 1.355 oz Constitutional Constitutional: no acute distress *Routine Respiratory Exam Respiratory: Present CTA bilaterally *Routine Cardiovascular Exam Cardiovascular: Present RRR *Routine Neurological Exam Neurological: Present alert and oriented X3 Progress Note: A&P Assessment and plan (1) Malignant hypertension: Status: Acute (2) Hypertriglyceridemia: Status: Acute (3) Pacemaker: Status: Acute (4) Carotid artery stenosis: Status: Chronic (5) Cerebrovascular accident (CVA): Status: Acute (6) CAD (coronary artery disease): Status: Chronic (7) Subclavian arterial stenosis: Status: Chronic (8) Bilateral renal artery stenosis: Status: Acute (9) Bilateral carotid bruits: Status: Chronic (10) HTN (hypertension): Status: Chronic (11) HLD (hyperlipidemia): Status: Chronic (12) Left renal artery stenosis: Status: Acute Assessment and Plan Assessment and Plan for All Diagnoses:: 1. Patient admitted for malignant hypertension. Improved control on Coreg 25 mg twice daily and Norvasc 5 mg daily. 2. Peripheral vascular disease with history of subclavian artery stenosis and carotid artery stenosis. Medical therapy recommended, 08/2021. 3. Coronary artery disease with history of coronary stenting, continue Plavix 75 mg daily. 4. History of GERD, continue PPI therapy 5. History of CKD with bilateral renal artery stenosis, status post bilateral renal artery stenting yesterday. Today creatinine 1.4And GFR 50. 6. Hypertriglyceridemia and dyslipidemia. Resume fenofibrate. Okay from cardiology standpoint for discharge home. Home medication recommendations: Carvedilol 25 mg twice daily Norvasc 5 mg daily (he may take an additional 5 mg for blood pressure greater than 150 mmHg systolic) Clopidogrel 75 mg daily Fenofibrate 134 mg daily Protonix 40 mg daily Aspirin 81 mg daily Hold lisinopril for now. Will consider restarting at follow-up visit 1 week Follow-up with Dr. Irvin in 1 week.
--- NOTE | 2022-07-20 09:08 | EXP.DC.SUM ---
General Admission date:: 07/18/22 Discharge date: 07/20/22 HPI HPI HPI: 66-year-old male patient admitted from cardiology clinic for dizziness & lightheadedness present pretty constant now, blurry vision present at times. He states he is feeling really bad right now and he hasn't had his BP meds for several days. Blood pressure this morning 140s/70s, he denies any chest pain, shortness of breath, dizziness, or lightheadedness. is present in room Hx of subclavian artery stenosis with stenting at [facility] in [place] 10/11. Hospital Course Hospital Course Hospital Course: 66 year-old male patient admitted from cardiology clinic for dizziness & lightheadedness present pretty constant now, blurry vision present at times. 07/18/22 Renal US: FINDINGS: Gallbladder: Cholelithiasis. Right kidney: Right kidney measures 11.5 cm longitudinally. Increased renal cortical echotexture with cortical thinning consistent with medical renal disease. Left kidney: Left kidney measures 13.7 cm longitudinally. Urinary bladder: Unremarkable. IMPRESSION: 1. Increased renal cortical echotexture with cortical thinning on the right. Unilateral finding, consider renovascular versus medical renal etiology. 2. Incidental cholelithiasis. Electronically signed by Sorin Ortega MD 07/19/[address]: FINDINGS: There is a chronic lacunar infarct in the left frontal periventricular white matter.? There are moderate chronic microvascular changes.? No abnormal density is seen.? Ventricles are normal.? There is no hemorrhage.? No mass effect is seen. Bone windows show no evidence of fracture. IMPRESSION: Chronic changes without acute findings. Reviewed, Interpreted and Dictated by Torres Eason MD 07/19/2022 bilateral renall artery angiography: ANGIOGRAPHIC RESULTS Right renal artery has an ostial 90% stenosis Left renal artery has an ostial 70% hazy stenosis IMPRESSION Severe bilateral renal artery stenosis Successful stenting of the right and left renal artery severe disease reduced to 0% with 1 bare-metal stent placed in each renal artery PLAN 1. Dual antiplatelet for 1 month then discontinuation of Plavix 2. Restart JORY inhibitor's as blood pressure will allow 3. Continue with carvedilol 4. Continue risk factor modification Electronically signed by : Cain Irvin MD Cardiology has seen and recommends: Assessment and Plan for All Diagnoses:: 1.? Patient admitted for malignant hypertension.? Improved control on Coreg 25 mg twice daily and Norvasc 5 mg daily. 2.? Peripheral vascular disease with history of subclavian artery stenosis and carotid artery stenosis.? Medical therapy recommended, 08/2021. 3.? Coronary artery disease with history of coronary stenting, continue Plavix 75 mg daily. 4.? History of GERD, continue PPI therapy 5.? History of CKD with bilateral renal artery stenosis, status post bilateral renal artery stenting yesterday.? Today creatinine 1.4And GFR 50. 6.? Hypertriglyceridemia and dyslipidemia. Resume fenofibrate. Okay from cardiology standpoint for discharge home. Home medication recommendations: Carvedilol 25 mg twice daily Norvasc 5 mg daily (he may take an additional 5 mg for blood pressure greater than 150 mmHg systolic) Clopidogrel 75 mg daily Fenofibrate 134 mg daily Protonix 40 mg daily Aspirin 81 mg daily Hold lisinopril for now.? Will consider restarting at follow-up visit 1 week Follow-up with Dr. Irvin in 1 week. Exam Data for Last 24 hours Vital signs and Labs for Last 24 Hours: Temp Pulse Resp BP Pulse Ox 97.9 F 77 17 139/79 91 L 07/20/22 08:00 07/20/22 08:00 07/20/22 08:00 07/20/22 08:00 07/20/22 08:00 Laboratory Results - last 24 hr 07/19/22 12:19: Activated Clotting Time 261 H* 07/20/22 06:14: Sodium 138, Potassium 3.9, Chloride 104, Carbon Dioxide 24, Anion Gap 13.9, BUN 15, Creatinine 1.40 H, Estimated Creat Clear 69, Estimated GFR 50 L, Est GFR (
--- NOTE | 2022-07-20 09:39 | CT_ITS ---
FINAL REPORT CLINICAL HISTORY: possible stroke COMPARISON: July 19, 2022 FINDINGS: There is a chronic lacunar infarct in the left frontal periventricular white matter. There are moderate chronic microvascular changes. No abnormal density is seen. Ventricles are normal. There is no hemorrhage. No mass effect is seen. Bone windows show no evidence of fracture. IMPRESSION: Chronic changes without acute findings. Reviewed, Interpreted and Dictated by Torres Eason MD Transcribed by Julio Duff Authenticated and . [facility]
--- NOTE | 2022-07-20 11:46 | EXP.ACUTE.PN ---
Subjective *Date: 07/20/22 *Time: 11:46 Interval history: 66-year-old male patient sitting up in bed resting quietly this morning, denies any chest pain, shortness of breath, or pain during the night. He underwent bilateral renal artery stenting yesterday. After rounds physical therapy reported patient was unable to move right side. Upon patient assessment unable to smile, unable to lift right upper extremity or right lower extremity, and was unable to answer questions. Head CTA ordered, cardiology notified, explained current situation. Upon return to floor from radiology reports patient was answering simple questions, but still had difficulty lifting right upper extremity. Cardiology to see patient Medical Exam Vital signs and Labs for Last 24 Hours: Temp Pulse Resp BP Pulse Ox 98.0 F 59 L 17 137/69 90 L 07/20/22 11:02 07/20/22 11:02 07/20/22 11:02 07/20/22 11:02 07/20/22 11:02 Laboratory Results - last 24 hr 07/19/22 12:19: Activated Clotting Time 261 H* 07/20/22 06:14: Sodium 138, Potassium 3.9, Chloride 104, Carbon Dioxide 24, Anion Gap 13.9, BUN 15, Creatinine 1.40 H, Estimated Creat Clear 69, Estimated GFR 50 L, Est GFR ( Amer) 61, Glucose 193 H D, Calcium 9.2 I & O for Labs for Last 24 Hours: Intake & Output 07/17/22 07/18/22 07/19/22 07/20/22 23:59 23:59 23:59 23:59 Intake Total 480 / 480 240 / 240 Output Total 0 / 0 600 / 600 300 / 300 Balance 480 / 480 -360 / -360 -300 / -300 Weight 207 lb 6 oz 207 lb 3.752 oz 212 lb 1.355 oz Head: Present atraumatic Eyes: Present as per HPI ENT: Present normal exam Neck: Present normal inspection and trachea midline Respiratory: Present wheezes and diminished air movement; Absent accessory muscle use Cardiac: Present Reg Rate and Rhythm GI: Present soft and normal bowel sounds; Absent distention or tenderness Extremities: Present normal inspection and full ROM; Absent tenderness Skin: Present intact and dry; Absent cyanosis or erythema Neuro: Present Motor Function Intact and oriented x 3 Assessment and Plan *Assessment and plan (1) Bilateral renal artery stenosis: Status: Acute Category: Medical Code(s): I70.1 - Atherosclerosis of renal artery (2) Hypertriglyceridemia: Status: Acute Category: Medical Code(s): E78.1 - Pure hyperglyceridemia (3) Pacemaker: Status: Acute Category: Medical Code(s): Z95.0 - Presence of cardiac pacemaker (4) Carotid artery stenosis: Status: Chronic Qualifiers: Laterality: bilateral Qualified Code(s): I65.23 - Occlusion and stenosis of bilateral carotid arteries Category: Medical Code(s): I65.29 - Occlusion and stenosis of unspecified carotid artery (5) Malignant hypertension: Status: Acute Category: Medical Code(s): I10 - Essential (primary) hypertension (6) Cerebrovascular accident (CVA): Status: Acute Category: Medical Code(s): I63.9 - Cerebral infarction, unspecified (7) CAD (coronary artery disease): Status: Chronic Qualifiers: Coronary Disease-Associated Artery/Lesion type: [place] artery [place] vs. transplanted heart: [place] heart Associated angina: without angina Qualified Code(s): I25.10 - Atherosclerotic heart disease of [place] coronary artery without angina pectoris Category: Medical Code(s): I25.10 - Atherosclerotic heart disease of [place] coronary artery without angina pectoris (8) HTN (hypertension): Status: Chronic Qualifiers: Hypertension type: primary hypertension Qualified Code(s): I10 - Essential (primary) hypertension Category: Medical Code(s): I10 - Essential (primary) hypertension Plan 1. Cardiology to see
--- NOTE | 2022-07-20 12:22 | PC.NURSE ---
1120- Neosynephrine 200mcg bolus given per Dr Albaro order 1121-Neosynephrine drip started at 40mcg, order to titrate drip to keep systolic >150 1130- BP 134/68, MAP 90, connie drip titrated to 50mcg 1135- BP 141/69, MAP 93, connie drip titrated to 60mcg 1140- BP 139/69, MAP 92, connie drip titrated to 80mcg 1145- BP 142/69, MAP 93, connie drip titrated to 100mcg 1155- BP 175/96, MAP 122 connie drip titrated to 90mcg
--- NOTE | 2022-07-20 16:02 | PC.NURSE ---
1315- BP 138/74, MAP 95, connie drip titrated to 100mcg 1345- BP 134/80, MAP 98, connie drip titrated to 110mcg 1400- BP 143/73, MAP 96, connie drip titrated to 120mcg 1430- BP 138/75, MAP 96, connie drip titrated to 130mcg 1450- Dr Albaro notified that despite being on connie at 130mcg patients systolic remains 130-140, given order to give 1mg glucagon and start vasopressin in addition to connie to maintain systolic>150 1500- 1mg glucagon given per md order, vasopressin drip started at 0.01units/min 1540- BP 144/72, MAP 96, connie drip titrated to 150mcg, vasopressin titrated to 0.02units/min
--- NOTE | 2022-07-20 18:13 | PC.NURSE ---
1630- BP 167/75, MAP 105, connie titrated to 130mcg 1645- BP 170/84, MAP 112, connie titrated to 110mcg 1740- BP 177/82, MAP 113, connie titrated to 90mcg 1745- BP 161/83, MAP 109, connie titrated to 70mcg 1800- BP 173/84, MAP 113, connie titrated to 50mcg
--- NOTE | 2022-07-20 18:30 | CT_ITS ---
PROCEDURE INFORMATION: Exam: CT Head Without Contrast Exam date and time: 07/20/2022 6:40 PM Age: 66 years old Clinical indication: Stroke-like symptoms; Other: Right sided weakness; Additional info: Stroke symptoms, right side weakness TECHNIQUE: Imaging protocol: Computed tomography of the head without contrast. Radiation optimization: All CT scans at this facility use at least one of these dose optimization techniques: automated exposure control; mA and/or kV adjustment per patient size (includes targeted exams where dose is matched to clinical indication); or iterative reconstruction. Other technique: STROKE PROTOCOL was implemented. COMPARISON: CT HEAD/BRAIN WO CON 07/20/2022 9:44 AM FINDINGS: Brain: Patchy hypoattenuation in the periventricular deep white matter bilaterally. Encephalomalacia within the left frontal lobe from remote infarct. Cerebral ventricles: Enlargement of ventricles, sulci and cisterns bilaterally. Paranasal sinuses: Mucosal thickening within paranasal sinuses but no fluid levels are evident. Mastoid air cells: Visualized mastoid air cells are well aerated. Bones/joints: Unremarkable. No acute fracture. Soft tissues: Unremarkable. Vasculature: Calcification of carotid siphons and vertebrobasilar arterial systems. IMPRESSION: 1. No evidence for acute intracranial hemorrhage, midline shift or mass effect. 2. Cortical atrophy and chronic periventricular microangiopathy. 3. Remote infarcts in the left frontal deep white matter. ASSESSMENT: ASPECTS ([place] Stroke Program Early CT Score) 10.
--- NOTE | 2022-07-20 19:30 | PC.NURSE ---
MD Dominguez notified to call Radiology DR Malone.
--- NOTE | 2022-07-20 19:37 | PC.NURSE ---
[place] titrated from 30 mcg/min to 30 mcg/min
--- NOTE | 2022-07-20 19:51 | PC.NURSE ---
Spoke with Dr Irvin about pt status per request of Dr Dominguez. New orders received to keep SBP 150-160. Give pt heparin 5,[address] pt on 1200 units/hr via stroke protocol. Pt assessed and does not follow commands at this time. would like pt to be transferred to [facility]. MD Dominguez paged.
--- NOTE | 2022-07-20 20:22 | PC.NURSE ---
Dr Dominguez paged by this RN - current [employer]. Pt is currently unhappy with patients care, and feels patient should be transferred. Pt has informed primary nurse that if things don't change, I will have my sons come up and remove him from the hospital . Pt is not alert and oriented at this time. Spoke to Dr. Dominguez regarding pt wifes concerns, and statements. Discussed with Dr. Dominguez pt mental status, and current reports. MD informed this RN he would be in to come speak to patients in person. Primary RN notified.
--- NOTE | 2022-07-20 20:49 | PC.NURSE ---
Campbell gtt on standby at this time due to BP 176/90
[2022-07-20 20:52] LABS: PTT Heparin (inpatient only) 21.4 Seconds (23.6-34.0)
[2022-07-20 21:22] LABS: Chloride 107 mmol/L (98-107); Potassium 4.2 mmoL/L (3.5-5.1); Sodium 141 mmol/L (136-145)
[2022-07-20 21:23] LABS: Basophils # 0.1 K/mm3 (0-0.2); Basophils % 0.6 % (0.1-2.0); Eosinophils % 0.2 % (0.1-12.0); Hematocrit 45.9 % (42.0-52.0); Hemoglobin 15.8 g/dL (14.1-18.0); Lymphocytes # 2.4 K/mm3 (0.7-4.5); Mean Corpuscular HGB Conc 34.5 g/dL (31.8-35.4); Mean Corpuscular Hemoglobin 31.1 pg (27.0-31.2); Mean Corpuscular Volume 90.2 fl (80-94); Mean Platelet Volume 10.8 fl (7.4-10.4); Monocytes % 4.9 % (1.7-9.3); Neutrophils # 16.8 K/mm3 (1.8-7.8); Neutrophils % 82.4 % (37.0-80.0); Platelet Count 184 K/mm3 (142-424); Red Blood Count 5.08 M/mm3 (4.60-6.20); Red Cell Distribution Width 13.6 % (11.5-17.5); White Blood Count 20.4 K/mm3 (4.8-10.8)
[2022-07-20 21:25] LABS: Alanine Aminotransferase 36 U/L (12-78); Albumin Level 4.1 g/dl (3.5-5.0); Albumin/Globulin Ratio 1.4 (1.1-1.8); Alkaline Phosphatase 91 U/L (38-126); Ammonia 16 umol/L (9-30); Anion Gap 14.2 mEq/L (5-15); Aspartate Amino Transferase 46 U/L (17-59); Bilirubin,Total 0.7 mg/dl (0.2-1.3); Blood Urea Nitrogen 14 mg/dl (9-20); Carbon Dioxide 24 mmol/L (22.0-30.0); Creatinine Clearance Estimated 69 mL/min (50-200); Estimated Glomerular Filt Rate 50 ml/min (>60); GFR (African American) 61 ML/MIN (>60); Globulin 2.9 g/dL (1.3-3.2); Glucose 129 mg/dl (74-100); MANUAL DIFFERENTIAL MANUAL DIFFERENTIAL (MANUAL DIFF)
--- NOTE | 2022-07-20 21:36 | PC.NURSE ---
Neus rounding at bedside. New orders received to give solumedrol 125 mg IV. Orders carried out.
--- NOTE | 2022-07-20 22:05 | CT_ITS ---
PROCEDURE INFORMATION: Exam: CTA Neck With Contrast Exam date and time: 07/20/2022 10:27 PM Age: 66 years old Clinical indication: Stroke-like symptoms; Altered mental status/memory loss; RT upper extremity weakness TECHNIQUE: Imaging protocol: Computed tomographic angiography of the neck with contrast. 3D rendering (Not supervised by radiologist): MIP and/or 3D reconstructed images were created by the technologist. Radiation optimization: All CT scans at this facility use at least one of these dose optimization techniques: automated exposure control; mA and/or kV adjustment per patient size (includes targeted exams where dose is matched to clinical indication); or iterative reconstruction. Contrast material: ISOVUE; Contrast volume: 100 ml; Contrast route: INTRAVENOUS (IV); COMPARISON: CT ANGIO NECK 08/20/2021 2:50 PM FINDINGS: Right common carotid artery: Moderate intimal thickening right common carotid artery with mild stenosis. Calcific and noncalcific plaque right carotid bulb and origin of right internal carotid artery with moderate stenosis of the internal carotid. No occlusion. Right internal carotid artery: See Right common carotid artery finding. Right external carotid artery: No occlusion or stenosis of the origin. Left common carotid artery: Patent stent origin left common carotid artery. Mild intimal thickening in the common carotid. Left internal carotid artery: Previous left endarterectomy. Intimal thickening left carotid bulb and proximal left internal carotid artery without stenosis or dissection. Left external carotid artery: No occlusion or stenosis of the origin. 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 Vessel distal to this is diminutive with additional areas of occlusion or near occlusion throughout the remainder of its cervical course again reconstituted as it enters foramen magnum. Left vertebral artery: Dominant left vertebral artery. Brachiocephalic artery: Moderate intimal thickening right brachiocephalic artery. Patent stent extending into the right subclavian artery. Soft tissues: Normal. No significant soft tissue swelling. Bones/joints: No acute fracture. Other findings: Emphysema. Emphysema. IMPRESSION: 1. Calcific and noncalcific plaque right carotid bulb and origin of right internal carotid artery with moderate stenosis of the internal carotid. No occlusion. 2. Diminutive right vertebral artery is occluded beginning at its origin with reconstitution level transverse foramen C4. Vessel distal to this is diminutive with additional areas of occlusion or near occlusion and intermittent opacification throughout the remainder of its cervical course, again reconstituted as it enters foramen magnum. REFERENCES: NASCET CRITERIA. The degree of stenosis in the cervical segment of the internal carotid artery is based on NASCET criteria. Normal is no stenosis. Mild is less than 50% stenosis. Moderate is 50-69% stenosis. Severe is 70% to 99% stenosis. Total occlusion is no detectable patent lumen.
--- NOTE | 2022-07-20 22:05 | CT_ITS ---
PROCEDURE INFORMATION: Exam: CTA Head With Contrast, Arteriography Exam date and time: 07/20/2022 10:27 PM Age: 66 years old Clinical indication: Stroke-like symptoms; Altered mental status/memory loss TECHNIQUE: Imaging protocol: Computed tomographic angiography of the head with contrast. Exam focused on the arteries. 3D rendering (Not supervised by radiologist): MIP and/or 3D reconstructed images were created by the technologist. Radiation optimization: All CT scans at this facility use at least one of these dose optimization techniques: automated exposure control; mA and/or kV adjustment per patient size (includes targeted exams where dose is matched to clinical indication); or iterative reconstruction. Contrast material: ISOVUE; Contrast volume: 100 ml; Contrast route: INTRAVENOUS (IV); COMPARISON: CT ANGIO HEAD 08/20/2021 2:50 PM FINDINGS: ANTERIOR CIRCULATION: Right internal carotid artery: Intracranial segment is patent with no significant stenosis. No aneurysm. Right middle cerebral artery: No occlusion or significant stenosis. No aneurysm. Right anterior cerebral artery: No occlusion or significant stenosis. No aneurysm. Left internal carotid artery: Intracranial segment is patent with no significant stenosis. No aneurysm. Left middle cerebral artery: No occlusion or significant stenosis. No aneurysm. Left anterior cerebral artery: Occlusion of a short segment of the left sided anterior cerebral artery extending over a distance of 5 mm with good distal flow. POSTERIOR CIRCULATION: Right vertebral artery: Reconstitution of the right sided vertebral artery as it enters intracranial portion. There is good flow within the right sided posteroinferior cerebellar artery. Left vertebral artery: No occlusion or significant stenosis. No aneurysm. Basilar artery: No occlusion or significant stenosis. No aneurysm. Right posterior cerebral artery: No occlusion or significant stenosis. No aneurysm. Left posterior cerebral artery: No occlusion or significant stenosis. No aneurysm. Brain: Normal.. Cerebral ventricles: No ventriculomegaly. Bones/joints: Unremarkable. No acute fracture. Soft tissues: Unremarkable. IMPRESSION: 1. Occlusion of a short segment of the left sided anterior cerebral artery extending over a distance of 5 mm with good distal flow. 2. Reconstitution right sided vertebral artery in the intracranial portion. There is good flow in the cerebellar arteries. 3. The remainder of the vascular structures are unremarkable. There is no other occlusion. There is no other significant stenosis or aneurysm.
[2022-07-20 22:08] LABS: Lymphocytes % 17 % (10-50); Neutrophils % 83 % (42-76); Total Cells Counted 100
[2022-07-20 22:09] LABS: Platelet Estimate Normal; RBC Morphology Normal
--- NOTE | 2022-07-20 23:10 | PC.NURSE ---
Pt is following some commands. He answered to his name and birthday. Pt has given a thumbs up to staff. Continues to not be able to use (R) arm. No facial droop noted. Vasopressin and Campbell gtt remain on standby at this time. Heparin infusing @ 1200 units/hr.
[2022-07-21] VITALS (22 sets, daily range): BP systolic 138–170; BP diastolic 74–97; PULSE 62–89; RESP 17–22; TEMP 36.4–36.8; O2SAT 90–95; BMI 28.8
--- NOTE | 2022-07-21 02:02 | PC.NURSE ---
Dr. Irvin paged for Dr. Keller
--- NOTE | 2022-07-21 02:02 | PC.NURSE ---
Dr. Keller on phone with Dr. Irvin
--- NOTE | 2022-07-21 02:13 | PC.NURSE ---
0200 - Dr. Keller at bedside to assess patient. Primary RN at bedside. Dr. Keller discussing current condition with patient . 0212 - Per MD - called to check bed status at [facility]. Informed there was a waitlist of at least 9 patients for ICU bed, and they were not taking any more patients on the waitlist at this time. 0216 - Contacted to check bed status.
--- NOTE | 2022-07-21 02:13 | PC.NURSE ---
Spoke with MD Keller about (R) sided weakness. MD assessed pt and speaking with MD Irvin on phone.
--- NOTE | 2022-07-21 02:22 | PC.NURSE ---
[facility] contacted re: transfer of patient, no beds available at this time.
--- NOTE | 2022-07-21 02:26 | PC.NURSE ---
call to re: transfer Dr. Keller on phone at this time
--- NOTE | 2022-07-21 02:28 | PC.NURSE ---
Dr Keller speaking with Dr Llanes at this time from .
--- NOTE | 2022-07-21 02:38 | PC.NURSE ---
Per Dr. Llanes @ [facility], patient will be placed on wait-list at this time, but does not anticipate a bed opening up soon for patient. Per [facility], no ICU Beds available, no Neuro beds available, and there are 63 people currently in the ED.
--- NOTE | 2022-07-21 02:39 | PC.NURSE ---
Vasopressin was restarted at 2335 @ 0.01 units/min. Titrated per protocol. Currently infusing @ 0.02 units/min. Campbell was restarted @ 0100 and currently infusing @ 30 mcg/min. BP is currently 154/80.
--- NOTE | 2022-07-21 02:44 | PC.NURSE ---
Contacted [facility] to check bed status - no beds available at this time.
--- NOTE | 2022-07-21 02:44 | PC.NURSE ---
Contacting [facility] regarding bed status at this time per Dr. Keller's request.
[2022-07-21 02:50] LABS: PTT Heparin (inpatient only) 56.5 Seconds (23.6-34.0)
--- NOTE | 2022-07-21 02:53 | PC.NURSE ---
[facility] stated they would give a call back to verify bed availability.
--- NOTE | 2022-07-21 03:12 | PC.NURSE ---
Spoke with [facility]. No changes to Heparin gtt. Continue at 1200 units/hr. Obtain PTT in 6 hrs. [facility] will put order in.
--- NOTE | 2022-07-21 03:39 | PC.NURSE ---
Dr Keller speaking with Neurology at
--- NOTE | 2022-07-21 03:40 | PC.NURSE ---
[facility] ER on divert. Not accepting any patients unless its for immediate surgery or immediate interventions needed.
--- NOTE | 2022-07-21 04:22 | EXP.ACUTE.PN ---
Subjective *Date: 07/21/22 *Time: 04: Interval history: pt with rt sided flaccid palsy with aphasia of uncertain time frame - pt has been on pressors and heparin - family concerned and wished to consider transfer - pt chart and xrays reviewed - Medical Exam Vital signs and Labs for Last 24 Hours: Temp Pulse Resp BP Pulse Ox 97.9 F 70 17 158/85 H 92 L 07/21/22 04:00 07/21/22 04:00 07/21/22 03:00 07/21/22 03:00 07/21/22 03:00 Laboratory Results - last 24 hr 07/20/22 06:14: Sodium 138, Potassium 3.9, Chloride 104, Carbon Dioxide 24, Anion Gap 13.9, BUN 15, Creatinine 1.40 H, Estimated Creat Clear 69, Estimated GFR 50 L, Est GFR ( Amer) 61, Glucose 193 H D, Calcium 9.2 07/20/22 20:11: APTT 21.4 L 07/20/22 21:06: WBC 20.4 H* D, RBC 5.08, Hgb 15.8, Hct 45.9, MCV 90.2, MCH 31.1, MCHC 34.5, RDW 13.6, Plt Count 184 D, MPV 10.8 H, Neut % (Auto) 82.4 H, Lymph % (Auto) 12.0, [place] % (Auto) 4.9, Eos % (Auto) 0.2, Baso % (Auto) 0.6, Neut # (Auto) 16.8 H, Lymph # (Auto) 2.4, [place] # (Auto) 1.0, Eos # (Auto) 0.0, Baso # (Auto) 0.1, Total Counted 100, Neutrophils % (Manual) 83 H, Lymphocytes % (Manual) 17, Platelet Estimate Normal, RBC Morphology Normal 07/20/22 21:06: Sodium 141, Potassium 4.2, Chloride 107, Carbon Dioxide 24, Anion Gap 14.2, BUN 14, Creatinine 1.40 H, Estimated Creat Clear 69, Estimated GFR 50 L, Est GFR ( Amer) 61, Glucose 129 H D, Calcium 9.0, Total Bilirubin 0.7, AST 46, ALT 36, Alkaline Phosphatase 91, Total Protein 7.0, Albumin 4.1, Globulin 2.9, Albumin/Globulin Ratio 1.4 07/20/22 21:06: Ammonia 16 07/21/22 02:15: APTT 56.5 H* I & O for Labs for Last 24 Hours: Intake & Output 07/18/22 07/19/22 07/20/22 07/21/22 11:59 11:59 11:59 11:59 Intake Total 480 / 480 240 / 240 2107 / 2107 Output Total 300 / 300 600 / 600 100 / 100 Balance 180 / 180 -360 / -360 2006 Weight 207 lb 6 oz 207 lb 3.752 oz 212 lb 1.355 oz 212 lb 9.503 oz Head: Present atraumatic Eyes: Present as per HPI ENT: Present mucous membranes moist Neck: Present trachea midline Respiratory: Present decreased breath sounds Cardiac: Present Reg Rate and Rhythm and Systolic Murmur GI: Present soft Rectal (male): Present deferred (male): Present deferred Extremities: Present edema (1 plus bilat ) Skin: Present intact Neuro: Present Right Babinski Reflex Comment:: no def facial asymmetry with aphasia and flaccid rt upper and lower with no posturing Assessment and Plan *Assessment and plan (1) Cerebrovascular accident (CVA): Status: Acute Category: Medical Code(s): I63.9 - Cerebral infarction, unspecified Plan continue meds and [facility] -
--- NOTE | 2022-07-21 04:53 | PC.NURSE ---
Pt can follow some commands this AM. He can state his name, Bday, age, 's name. Can follow this nurses finger with eyes. 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 Pt continues to not be able to lift (R) arm or (R) leg. Can open and close eyes. Is able to name pictures and read some words. Pt has been incontinent of urine this shift. No BM. Lungs are diminished. Pt remains on RA. BP stable at this time. Vasopressin currently infusing @ 0.02 units/min. Campbell is currently infusing @ 30 mcg/min. Cath site to (R) femoral is C/D/I. Safety measures in place. remains at bedside.
--- NOTE | 2022-07-21 06:01 | ECG_ITS ---
APPROVED REPORT Exam: Resting ECG HR:69 bpm ECG Measurements Heart Rate 69 AXES OH 157 P 61 QRSd 149 QRS -71 QT 509 T 82 QTc 528 Conclusion ELECTRONIC ATRIAL PACEMAKER ELECTRONIC VENTRICULAR PACEMAKER ABNORMAL RHYTHM ECG UNCONFIRMED REPORT Electronically signed by : Mic Ann MD 07/22/2022 16:07:58
[2022-07-21 06:36] LABS: Basophils % 0.2 % (0.1-2.0); Eosinophils % 0.1 % (0.1-12.0); Hematocrit 44.8 % (42.0-52.0); Hemoglobin 15.5 g/dL (14.1-18.0); Lymphocytes # 1.4 K/mm3 (0.7-4.5); Lymphocytes % 8.2 % (10-50); Mean Corpuscular HGB Conc 34.5 g/dL (31.8-35.4); Mean Corpuscular Hemoglobin 31.5 pg (27.0-31.2); Mean Corpuscular Volume 91.3 fl (80-94); Mean Platelet Volume 10.8 fl (7.4-10.4); Monocytes # 0.4 K/mm3 (0.1-1.0); Monocytes % 2.4 % (1.7-9.3); Neutrophils # 14.8 K/mm3 (1.8-7.8); Neutrophils % 89.1 % (37.0-80.0); Platelet Count 177 K/mm3 (142-424); Red Blood Count 4.91 M/mm3 (4.60-6.20); Red Cell Distribution Width 13.6 % (11.5-17.5); White Blood Count 16.6 K/mm3 (4.8-10.8)
[2022-07-21 06:44] LABS: MANUAL DIFFERENTIAL MANUAL DIFFERENTIAL (MANUAL DIFF)
--- NOTE | 2022-07-21 06:48 | PC.NURSE ---
Pt able to lift (R) arm and move RLE some. Campbell gtt titrated to 20 mcg/min. Vasopressin remains @ 0.02 units/min.
[2022-07-21 06:52] LABS: Blood Urea Nitrogen 15 mg/dl (9-20); Calcium 8.8 mg/dl (8.4-10.2); Carbon Dioxide 22 mmol/L (22.0-30.0); Chloride 102 mmol/L (98-107); Creatinine Clearance Estimated 74 mL/min (50-200); Estimated Glomerular Filt Rate 55 ml/min (>60); GFR (African American) 66 ML/MIN (>60); Glucose 160 mg/dl (74-100); Sodium 139 mmol/L (136-145)
[2022-07-21 07:40] LABS: Lymphocytes % 9 % (10-50); Monocytes % 3 % (2-9); Neutrophils % 88 % (42-76); Platelet Estimate Normal; RBC Morphology Normal; Total Cells Counted 100
--- NOTE | 2022-07-21 08:12 | EXP.PHA.HEP ---
[facility] Pharmacy Heparin Dosing Demographic Data Admission date:: 07/18/22 Date: 07/21/22 Time: 08:12 Allergies Allergy/AdvReac Type Severity Reaction Status Date / Time No Known Allergies Allergy Verified 07/18/22 11:18 Height: 1.83 m Weight: 96.431 kg Indication Medication therapy:: Heparin Current Indications:: STROKE Current Active Problems (Updated 07/21/22 @ 04:31 by Anatoliy Keller MD) Bilateral renal artery stenosis (Acute) Hypertriglyceridemia (Acute) Left renal artery stenosis (Acute) Pacemaker (Acute) Carotid artery stenosis (Chronic) Malignant hypertension (Acute) Cerebrovascular accident (CVA) (Acute ~07/21/22) CAD (coronary artery disease) (Chronic) Subclavian arterial stenosis (Chronic) HTN (hypertension) (Chronic) CVA?: Yes Bleeding problem?: No Kidney disease?: No [place]?: No Additional History:: RENAL/CAROTID/SUBCLAVIAN STENOSIS, CAD, HTN, HLD, CHEST PAIN, PACEMAKER Desired PTT range:: 50-75 seconds Labs Anticoagulation Lab Results:: 07/20/22 07/21/22 21:06 05:50 Hgb 15.8 15.5 Hct 45.9 44.8 Plt Count 184 D 177 Monitoring Dose Monitor 1: Date: 07/20/22 Time: 20:13 PTT Result:: BASELINE PTT: 21.4 SECONDS Infusion Rate:: START HEPARIN DRIP AT 1200 UNITS/HOUR AND BOLUS 5000 UNITS HEPARIN IV ONCE PER MD ORDER. Dose Monitor 2: Date: 07/21/22 Time: 02:15 PTT Result:: 56.5 SECONDS Infusion Rate:: CONTINUE HEPARIN DRIP AT 1200 UNITS/HOUR Dose Monitor 3: Date: 07/21/22 Time: 09:00 PTT Result:: 55.8 SECONDS Infusion Rate:: CONTINUE HEPARIN DRIP AT 1200 UNITS/HOUR Core Measures Is INR > or = 2 at discharge?: No Most Recent Labs:: Laboratory Results - last 24 hr 07/20/22 20:11: APTT 21.4 L 07/20/22 21:06: WBC 20.4 H* D, RBC 5.08, Hgb 15.8, Hct 45.9, MCV 90.2, MCH 31.1, MCHC 34.5, RDW 13.6, Plt Count 184 D, MPV 10.8 H, Neut % (Auto) 82.4 H, Lymph % (Auto) 12.0, [place] % (Auto) 4.9, Eos % (Auto) 0.2, Baso % (Auto) 0.6, Neut # (Auto) 16.8 H, Lymph # (Auto) 2.4, [place] # (Auto) 1.0, Eos # (Auto) 0.0, Baso # (Auto) 0.1, Total Counted 100, Neutrophils % (Manual) 83 H, Lymphocytes % (Manual) 17, Platelet Estimate Normal, RBC Morphology Normal 07/20/22 21:06: Sodium 141, Potassium 4.2, Chloride 107, Carbon Dioxide 24, Anion Gap 14.2, BUN 14, Creatinine 1.40 H, Estimated Creat Clear 69, Estimated GFR 50 L, Est GFR ( Amer) 61, Glucose 129 H D, Calcium 9.0, Total Bilirubin 0.7, AST 46, ALT 36, Alkaline Phosphatase 91, Total Protein 7.0, Albumin 4.1, Globulin 2.9, Albumin/Globulin Ratio 1.4 07/20/22 21:06: Ammonia 16 07/21/22 02:15: APTT 56.5 H* 07/21/22 05:50: WBC 16.6 H, RBC 4.91, Hgb 15.5, Hct 44.8, MCV 91.3, MCH 31.5 H, MCHC 34.5, RDW 13.6, Plt Count 177, MPV 10.8 H, Neut % (Auto) 89.1 H, Lymph % (Auto) 8.2 L, [place] % (Auto) 2.4, Eos % (Auto) 0.1, Baso % (Auto) 0.2, Neut # (Auto) 14.8 H, Lymph # (Auto) 1.4, [place] # (Auto) 0.4, Eos # (Auto) 0.0, Baso # (Auto) 0.0, Total Counted 100, Neutrophils % (Manual) 88 H, Lymphocytes % (Manual) 9 L, Monocytes % (Manual) 3, Platelet Estimate Normal, RBC Morphology Normal 07/21/22 05:50: Sodium 139, Potassium 4.0, Chloride 102, Carbon Dioxide 22, Anion Gap 19.0 H, BUN 15, Creatinine 1.30 H, Estimated Creat Clear 74, Estimated GFR 55 L, Est GFR ( Amer) 66, Glucose 160 H D, Calcium 8.8 If INR was < than 2.0 why was therapy stopped?: PER MD ORDER Were Heparin and Warfarin started on the same day?: No If not, why?: STILL INPATIENT, DRIP STOPPED PER MD ORDER. HOME PLAVIX/ASPIRIN RESTARTED.
--- NOTE | 2022-07-21 08:32 | PC.NURSE ---
Pt notified me that pt was trying to get out of bed, stating that he wanted to get up. upon entering the room the pt was sitting up in bed with left leg out of bed. pt was reminded of current situation and that he was not able to bear own weight at this time. pt needed continual reminding/reorientation for approx 10 minutes before he decided to lay back down in bed. bed alarm still activated at this time.
--- NOTE | 2022-07-21 08:46 | PC.NURSE ---
during bedside report pt was noted to be unable to lift right arm or right leg. pt had facial droop on r side. 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 pt is able to slightly wiggle toes on right foot.
[2022-07-21 09:24] LABS: PTT Heparin (inpatient only) 55.8 Seconds (23.6-34.0)
--- NOTE | 2022-07-21 09:29 | PC.NURSE ---
drips at start of shift Heparin 1200 units Vasopressin 0.02 units/min Campbell 10mcg campbell drip stopped at 0920 r/t bp 175/100 and previous bp's have been in the upper 150's to 160's sys since 0800
--- NOTE | 2022-07-21 09:35 | EXP.ACUTE.PN ---
Subjective *Date: 07/21/22 *Time: 14:52 Interval history: [id number] male patient sitting up in bed resting quietly in no apparent distress, at bedside. He still has some right-sided face paralysis today, but is able to answer simple questions and follow simple commands. Able to lift right upper extremity and left lower extremity off of bed and hold, but is extremely weak. Currently neosynephrine, vasopressin and heparin infusing. Long discussion with and patient over possible explanations for yesterday's events, both verbalized understanding and deny any questions Medical Exam Vital signs and Labs for Last 24 Hours: Temp Pulse Resp BP Pulse Ox 97.7 F 84 20 159/87 H 93 L 07/21/22 08:15 07/21/22 08:15 07/21/22 08:15 07/21/22 08:15 07/21/22 08:15 Laboratory Results - last 24 hr 07/20/22 20:11: APTT 21.4 L 07/20/22 21:06: WBC 20.4 H* D, RBC 5.08, Hgb 15.8, Hct 45.9, MCV 90.2, MCH 31.1, MCHC 34.5, RDW 13.6, Plt Count 184 D, MPV 10.8 H, Neut % (Auto) 82.4 H, Lymph % (Auto) 12.0, [place] % (Auto) 4.9, Eos % (Auto) 0.2, Baso % (Auto) 0.6, Neut # (Auto) 16.8 H, Lymph # (Auto) 2.4, [place] # (Auto) 1.0, Eos # (Auto) 0.0, Baso # (Auto) 0.1, Total Counted 100, Neutrophils % (Manual) 83 H, Lymphocytes % (Manual) 17, Platelet Estimate Normal, RBC Morphology Normal 07/20/22 21:06: Sodium 141, Potassium 4.2, Chloride 107, Carbon Dioxide 24, Anion Gap 14.2, BUN 14, Creatinine 1.40 H, Estimated Creat Clear 69, Estimated GFR 50 L, Est GFR ( Amer) 61, Glucose 129 H D, Calcium 9.0, Total Bilirubin 0.7, AST 46, ALT 36, Alkaline Phosphatase 91, Total Protein 7.0, Albumin 4.1, Globulin 2.9, Albumin/Globulin Ratio 1.4 07/20/22 21:06: Ammonia 16 07/21/22 02:15: APTT 56.5 H* 07/21/22 05:50: WBC 16.6 H, RBC 4.91, Hgb 15.5, Hct 44.8, MCV 91.3, MCH 31.5 H, MCHC 34.5, RDW 13.6, Plt Count 177, MPV 10.8 H, Neut % (Auto) 89.1 H, Lymph % (Auto) 8.2 L, [place] % (Auto) 2.4, Eos % (Auto) 0.1, Baso % (Auto) 0.2, Neut # (Auto) 14.8 H, Lymph # (Auto) 1.4, [place] # (Auto) 0.4, Eos # (Auto) 0.0, Baso # (Auto) 0.0, Total Counted 100, Neutrophils % (Manual) 88 H, Lymphocytes % (Manual) 9 L, Monocytes % (Manual) 3, Platelet Estimate Normal, RBC Morphology Normal 07/21/22 05:50: Sodium 139, Potassium 4.0, Chloride 102, Carbon Dioxide 22, Anion Gap 19.0 H, BUN 15, Creatinine 1.30 H, Estimated Creat Clear 74, Estimated GFR 55 L, Est GFR ( Amer) 66, Glucose 160 H D, Calcium 8.8 07/21/22 09:01: APTT 55.8 H* I & O for Labs for Last 24 Hours: Intake & Output 07/18/22 07/19/22 07/20/22 07/21/22 23:59 23:59 23:59 23:59 Intake Total 480 / 480 240 / 240 2107 / 2107 1220 / 1220 Output Total 0 / 0 600 / 600 400 / 400 125 / 125 Balance 480 / 480 -360 / -360 1707 / 1707 1095 / 1095 Weight 207 lb 6 oz 207 lb 3.752 oz 212 lb 1.355 oz 212 lb 9.503 oz Head: Present atraumatic Eyes: Present as per HPI ENT: Present normal exam Neck: Present full ROM; Absent trachea midline Respiratory: Present accessory muscle use and decreased breath sounds Cardiac: Present Reg Rate and Rhythm GI: Present soft and normal bowel sounds; Absent distention or tenderness Extremities: Present normal inspection and normal capillary refill; Absent full ROM or tenderness Skin: Present intact and dry; Absent cyanosis or erythema Neuro: Present Sensory Function Intact, Weakness, oriented x 3 and moves all extremities; Absent Numbness Assessment and Plan *Assessment and plan (1) Bilateral renal artery stenosis: Status: Acute Category: Medical Code(s): I70.1 - Atherosclerosis of renal artery (2) Hypertriglyceridemia: Status: Acute Category: Medical Code(s): E78.1 - Pure hyperglyceridemia (3) Pacemaker: Status: Acute Category: Medical Code(s): Z95.0 - Presence of cardiac pacemaker (4) Carotid artery stenosis: Status: Chronic Qualifiers: Laterality: bilateral Qualified Code(s): I65.23 - Occlusion and stenosis of bi
--- NOTE | 2022-07-21 09:40 | PC.NURSE ---
at this time pt is more alert, he is following directions and is compliant with care. pt is able to lift his r arm off of his leg, not noted to have significant mvmt in r leg. pt was able to swallow pills without difficulty.
--- NOTE | 2022-07-21 09:52 | PC.NURSE ---
0945 notified Ingrid KearnsLuna of PTT of 55.8
--- NOTE | 2022-07-21 11:11 | PC.NURSE ---
[facility] called for update on patient at this time. no beds currently available, states she will call me back if one becomes available.
--- NOTE | 2022-07-21 11:18 | [facility].PTEV ---
Physical Therapy Evaluation Rehab PT IP Evaluation Start: 07/21/22 09:55 Freq: ONCE Status: Active Protocol: Document 07/21/22 11:14 PHORNE (Rec: 07/21/22 11:18 PHORNE [id number]) Subjective/History History History 66 yowm adm to [facility] with HTN and carotid stenosis, possible CVA vs TIA while adm. He reports he was generally independent with all mobility and ambulation prior to adm. No AD, no steps to enter the home, lives with spouse. hx of prior CVA with R side affect. Subjective Subjective Pt reports feeling better this am, no new c/o. Rehab PT IP Eval Objective Appearance Patient Behavior Appropriate Patient Orientation Person,Place,Time Difficulty following instructions none Speech Pattern Clear,Delayed Ambulation Patient Able to Ambulate Yes Ambulation Observation IP General Gait Pattern Observation Shuffling Step Ambulation Distance (feet) 5 Ambulation Assistive Device None Ambulation Ability Minimal x 1 (25% assist) Balance Ability to Arise Able, uses arms to help Sitting Balance Steady, safe Standing Balance Steady, wide stance Dynamic Sitting Balance Ability Fair Dynamic Standing Balance Ability Fair Transfers Bed Transfer Ability Minimal x 1 (25% assist) Chair Transfer Ability Minimal x 1 (25% assist) Sit to Stand Bed Transfer Ability Minimal x 1 (25% assist) Sit to Stand Chair Transfer Ability Minimal x 1 (25% assist) MMT RLE PT MMT ABN Abnormal MMT Grade grossly 4/5 RUE PT MMT ABN Abnormal MMT Grade grossly 4/5 Rehab PT IP prob,goals,plan Problems Date of Evaluation: 07/21/22 PT IP Problems Bed Mobility,Transfers,Gait, Balance,Self care Rehab Potential Rehab Potential Good Plan PT Intervention Plan Bed Mobility,Transfers,Gait, Balance,Self care,Therapeutic Exercise PT Plan Frequency BID Duration LOS Discharge Goals Bed Transfer Ability Contact Guard/Hand Hold Sit to Stand Chair Transfer Ability Contact Guard/Hand Hold Ambulation Assistive Device None Ambulation Distance (feet) 20 Discharge Plan PT Discharge Plan Pt is appropriate to return home once medically stable, recommen
--- NOTE | 2022-07-21 11:21 | HMH.OTEV ---
OT Inpatient Evaluation Rehab OT IP Evaluation Start: 07/21/22 09:55 Freq: ONCE Status: Complete Protocol: [facility]22 10[facility] (Rec: 07/21/22 11:21 [facility] [id number]) Rehab OT IP Assessment Subjective History Pt oriented x 3 on arrival. Pt agreeable to engage in therapy evaluation. [facility] due to HTN with dizziness & lightheadedness. Pt did have a prior CVA affecting right side. Prior to being in the hospital, pt lived at home with his . Pt claims he was independent with all ADLs such as dressing, bathing, and feeding. He also reports him and his both complete all IADLs. He also still drove. He did not use any type of AE during ambulation or functional transfers. Pt has a past medical history of: Bilateral carotid bruits CAD (coronary artery disease) Cerebrovascular accident (CVA) Chest pain Dizziness HLD (hyperlipidemia) HTN (hypertension) Pacemaker Subclavian arterial stenosis Syncope Subjective Yes I can. Pt resting in bed. Pt sent from supine to sitting at eob with sba. Pt stood from eob with cga. Pt transferred from eob to chair (~5 feet) with step transfer and min assist. Pt sat down in chair with min assist. Pt was left sitting in chair with call bustamante and all other needs in reach. Objective Patient Orientation Person,Place,Birthday Upper Extremity Gross ROM Mod Limitation 50% Shoulder ROM Limitations Muscle Weakness Elbow ROM Limitations Muscle Weakness Wrist Limitations of Range of Motion Muscle Weakness Bed Mobility bed mobility-scooting,bed
--- NOTE | 2022-07-21 11:51 | PC.NURSE ---
Spoke face to face with Dr Irvin. Per MD dc heparin drip. keep systolic bp btwn 150-160 ( absolutely no less than 140 ) attempt to wean vasopressin as able. bp during md rounds 150/80
--- NOTE | 2022-07-21 11:58 | HMH.SLDYSPHA ---
Speech & Language Evaluation Speech/Language Dysphagia Evaluation Start: 07/21/22 11:37 Freq: ONCE Status: Active Protocol: Document 07/21/22 11:37 ALEX (Rec: 07/21/22 11:57 ALEX [id number]) Dysphagia Assess/Goals/Plan Assessment Date of Evaluation: 07/21/22 Evaluation Type Initial Certification Assessment/Problems NURSE CLINICIAN provided clinical bedside swallow evaluation per MD order. Does Patient Qualify for Service No Qualify/Failure Comment Pt demonstrated no overt s/sxs of aspiration across all presented consistencies. Recommendations PHYSICIAN CERTIFICATION: The specified therapy services are required, authorized, and reviewed every 30 days. Pt will be seen # times/week 0 Diet Recommendations Normal Liquid Type Recommendations Normal/Thin Dysphagia Swallow Precautions/Strategies Sitting Upright (90 deg), Alternate Liquids/Solids Plan Pt/Guardian verbally ack understanding Yes of dx/prognosis/goals G -code Required No Education Instructions provided Nursing, care management, and given review of results of assessment and diet recommendations. All of which expressed understanding. Pt/Caregiver able to recall information Able to recall/restate Reinforcement needed No Speech & Language HPI History Present Illness Description of Patient Problem Pt admitted to [facility] from cardiology clinic 2' report of dizziness & lightheadness. He was reported to have stopped taking blood pressure medicare . Pt noted to have PMH of bilateral carotid [place], coronary artery disease (CAD), hx of cerebrovascular accident (CVA), hyperlipidema (HLD), hypertension (HTN), permanent pacemaker, and syncope. Pt reported to be an every day smoker. Head CT implemented stroke protocol and nursing/progress notes report aphasic w/ right-sided weakness & facial weakness, disorientation to situation, and altered mental status. Pt given informal assessment to address executive function and
--- NOTE | 2022-07-21 11:58 | EXP.CARD.PN ---
Subjective Subjective Date: 07/21/22 Time: 11:58 Principal diagnosis: Malignant hypertension Interval history: 66-year-old white male sitting in bedside chair in no acute distress. Patient is talking and interacting at this time. He is able to lift and squeeze some with his right hand and arm and minimal movement of his right foot. Events of last night noted with CTA of the head and neck showing no acute cardiovascular events. Patient has been weaned off of the Campbell-Synephrine drip and is currently just on medium dose of vasopressin with blood pressure staying in the 150-[address] Irvin talk with the patient and his extensively regarding the events of last night and the cause for the events after stenting of the renal arteries. All questions were answered. Exam Data for Last 24 hours Vital signs and Labs for Last 24 Hours: Temp Pulse Resp BP Pulse Ox 97.6 F 70 20 168/78 H 95 07/21/22 10:20 07/21/22 11:29 07/21/22 11:29 07/21/22 11:29 07/21/22 11:29 Laboratory Results - last 24 hr 07/20/22 20:11: APTT 21.4 L 07/20/22 21:06: WBC 20.4 H* D, RBC 5.08, Hgb 15.8, Hct 45.9, MCV 90.2, MCH 31.1, MCHC 34.5, RDW 13.6, Plt Count 184 D, MPV 10.8 H, Neut % (Auto) 82.4 H, Lymph % (Auto) 12.0, [place] % (Auto) 4.9, Eos % (Auto) 0.2, Baso % (Auto) 0.6, Neut # (Auto) 16.8 H, Lymph # (Auto) 2.4, [place] # (Auto) 1.0, Eos # (Auto) 0.0, Baso # (Auto) 0.1, Total Counted 100, Neutrophils % (Manual) 83 H, Lymphocytes % (Manual) 17, Platelet Estimate Normal, RBC Morphology Normal 07/20/22 21:06: Sodium 141, Potassium 4.2, Chloride 107, Carbon Dioxide 24, Anion Gap 14.2, BUN 14, Creatinine 1.40 H, Estimated Creat Clear 69, Estimated GFR 50 L, Est GFR ( Amer) 61, Glucose 129 H D, Calcium 9.0, Total Bilirubin 0.7, AST 46, ALT 36, Alkaline Phosphatase 91, Total Protein 7.0, Albumin 4.1, Globulin 2.9, Albumin/Globulin Ratio 1.4 07/20/22 21:06: Ammonia 16 07/21/22 02:15: APTT 56.5 H* 07/21/22 05:50: WBC 16.6 H, RBC 4.91, Hgb 15.5, Hct 44.8, MCV 91.3, MCH 31.5 H, MCHC 34.5, RDW 13.6, Plt Count 177, MPV 10.8 H, Neut % (Auto) 89.1 H, Lymph % (Auto) 8.2 L, [place] % (Auto) 2.4, Eos % (Auto) 0.1, Baso % (Auto) 0.2, Neut # (Auto) 14.8 H, Lymph # (Auto) 1.4, [place] # (Auto) 0.4, Eos # (Auto) 0.0, Baso # (Auto) 0.0, Total Counted 100, Neutrophils % (Manual) 88 H, Lymphocytes % (Manual) 9 L, Monocytes % (Manual) 3, Platelet Estimate Normal, RBC Morphology Normal 07/21/22 05:50: Sodium 139, Potassium 4.0, Chloride 102, Carbon Dioxide 22, Anion Gap 19.0 H, BUN 15, Creatinine 1.30 H, Estimated Creat Clear 74, Estimated GFR 55 L, Est GFR ( Amer) 66, Glucose 160 H D, Calcium 8.8 07/21/22 09:01: APTT 55.8 H* I & O for Last 24 hours: Intake & Output 07/18/22 07/19/22 07/20/22 07/21/22 11:59 11:59 11:59 11:59 Intake Total 480 / 480 240 / 240 3087 / 3087 Output Total 300 / 300 600 / 600 225 / 225 Balance 180 / 180 -360 / -360 2862 / 2862 Weight 207 lb 6 oz 207 lb 3.752 oz 212 lb 1.355 oz 212 lb 9.503 oz *Routine Neck Exam Neck: Present carotid bruit *Routine Respiratory Exam Respiratory: Present CTA bilaterally *Routine Cardiovascular Exam Cardiovascular: Present RRR *Routine Extremities Exam Extremities: Absent edema or calf tenderness Comments: Right side weakness. *Routine Neurological Exam Neurological: Present alert and oriented X3 Progress Note: A&P Assessment and plan (1) Cerebrovascular accident (CVA): Status: Acute (2) Malignant hypertension: Status: Acute (3) Hypertriglyceridemia: Status: Acute (4) Pacemaker: Status: Acute (5) Carotid artery stenosis: Status: Chronic (6) CAD (coronary artery disease): Status: Chronic (7) Subclavian arterial stenosis: Status: Chronic (8) Bilateral renal artery stenosis: Status: Acute (9) Bilateral carotid bruits: Status: Chronic (10) HTN (hypertension): Status: Chronic (11) HLD (hyperlipidemia): Status: C
--- NOTE | 2022-07-21 13:13 | PC.WOUNDNOTE ---
pt is unable to tell me how old he is, he cannot recall the month. he is able to hold his right arm off of the bed for 10seconds without drooping. he is unable to lift/hold his right leg off of the bed. pt does know his birthday and recalls it easily and quickly. pt was up to the chair for a couple of hours this am. when going back to bed he was able to bear his own weight but had to drag his right leg to get back to the bed.
[2022-07-21 13:23] LABS: PTT Heparin (inpatient only) 39.3 Seconds (23.6-34.0)
--- NOTE | 2022-07-21 21:39 | PC.NURSE ---
[facility] called with an available bed, discussed bed opening with and patient as well as Dr. Irvin, pt and do not wish to be transferred at this time, [facility] does not want patient transferred, notified that pt will not be coming
--- NOTE | 2022-07-21 21:50 | PC.NURSE ---
[facility] called with an available bed, discussed transfer with and patient as well as Dr. Irvin, pt and do not wish to be transferred at this time, [facility] does not want patient transferred, notified that pt will not be coming
[2022-07-22] VITALS (11 sets, daily range): BP systolic 134–188; BP diastolic 58–94; PULSE 57–74; RESP 14–22; TEMP 36.5–36.7; O2SAT 90–96; BMI 28.9
[2022-07-22 06:47] LABS: Basophils % 0.3 % (0.1-2.0); Eosinophils % 0.2 % (0.1-12.0); Hematocrit 43.8 % (42.0-52.0); Hemoglobin 14.8 g/dL (14.1-18.0); Lymphocytes # 2.1 K/mm3 (0.7-4.5); Lymphocytes % 17.3 % (10-50); Mean Corpuscular HGB Conc 33.8 g/dL (31.8-35.4); Mean Corpuscular Hemoglobin 30.7 pg (27.0-31.2); Mean Corpuscular Volume 91.1 fl (80-94); Mean Platelet Volume 11.2 fl (7.4-10.4); Monocytes # 0.6 K/mm3 (0.1-1.0); Neutrophils # 9.5 K/mm3 (1.8-7.8); Neutrophils % 77.3 % (37.0-80.0); Platelet Count 144 K/mm3 (142-424); Red Blood Count 4.81 M/mm3 (4.60-6.20); Red Cell Distribution Width 13.8 % (11.5-17.5); White Blood Count 12.3 K/mm3 (4.8-10.8)
--- NOTE | 2022-07-22 06:48 | PC.NURSE ---
pt is able to state how old he is, can state his birthday, he cannot recall the month, able to hold his right arm off the bed for 10 seconds without drooping. he is unable to lift and hold his right leg off the bed, vasopressin turned off due to SBP over 160, no complaints of pain or SOA
[2022-07-22 06:53] LABS: Chloride 100 mmol/L (98-107)
[2022-07-22 06:54] LABS: Potassium 3.6 mmoL/L (3.5-5.1); Sodium 139 mmol/L (136-145)
[2022-07-22 06:57] LABS: Anion Gap 12.6 mEq/L (5-15); Blood Urea Nitrogen 24 mg/dl (9-20); Calcium 8.7 mg/dl (8.4-10.2); Carbon Dioxide 30 mmol/L (22.0-30.0); Creatinine Clearance Estimated 81 mL/min (50-200); Estimated Glomerular Filt Rate 60 ml/min (>60); GFR (African American) 73 ML/MIN (>60); Glucose 99 mg/dl (74-100)
--- NOTE | 2022-07-22 09:13 | EXP.ACUTE.PN ---
Subjective *Date: 07/23/22 *Time: 01:47 Interval history: pt with improved status - off drips Medical Exam Vital signs and Labs for Last 24 Hours: Temp Pulse Resp BP Pulse Ox 98.0 F 60 20 176/87 H 91 L 07/22/22 00:00 07/22/22 08:00 07/22/22 06:00 07/22/22 06:00 07/22/22 06:00 Laboratory Results - last 24 hr 07/21/22 09:01: APTT 55.8 H* 07/21/22 12:58: APTT 39.3 H 07/22/22 05:05: WBC 12.3 H D, RBC 4.81, Hgb 14.8, Hct 43.8, MCV 91.1, MCH 30.7, MCHC 33.8, RDW 13.8, Plt Count 144, MPV 11.2 H, Neut % (Auto) 77.3, Lymph % (Auto) 17.3, [place] % (Auto) 5.0, Eos % (Auto) 0.2, Baso % (Auto) 0.3, Neut # (Auto) 9.5 H, Lymph # (Auto) 2.1, [place] # (Auto) 0.6, Eos # (Auto) 0.0, Baso # (Auto) 0.0 07/22/22 05:05: Sodium 139, Potassium 3.6, Chloride 100, Carbon Dioxide 30, Anion Gap 12.6, BUN 24 H D, Creatinine 1.20, Estimated Creat Clear 81, Estimated GFR 60, Est GFR ( Amer) 73, Glucose 99 D, Calcium 8.7 I & O for Labs for Last 24 Hours: Intake & Output 07/19/22 07/20/22 07/21/22 07/22/22 11:59 11:59 11:59 11:59 Intake Total 480 / 480 240 / 240 3087 / 3087 260 / 260 Output Total 300 / 300 600 / 600 225 / 225 825 / 825 Balance 180 / 180 -360 / -360 2862 / 2862 -565 / -565 Weight 207 lb 3.752 oz 212 lb 1.355 oz 212 lb 9.503 oz 213 lb 11.2 oz Head: Present normocephalic ENT: Present mucous membranes moist Neck: Present trachea midline Respiratory: Present CTA bilaterally Cardiac: Present Reg Rate and Rhythm GI: Present soft Extremities: Present full ROM Skin: Present intact Neuro: Present Cranial Nerve 2-12 Intact and moves all extremities
--- NOTE | 2022-07-22 18:21 | PC.NURSE ---
Patient has been up to chair for most of the day today, was given a shower this morning, remains on RA, remains weak on his right side but is able to move extremities on right side, follow commands at times, remains on RA, patient and refused physical therapy this shift, alert to person and place, swallowed po meds without difficulty, systolic bp remained >150 this shift, vss, bed in lowest position with call light in reach, at bedside.
[2022-07-23] VITALS: PULSE 60
[2022-07-23 04:00] VITALS: BP 178/98; PULSE 60; PULSE 70; RESP 14; TEMP 36.6; O2SAT 94
--- NOTE | 2022-07-23 04:00 | PC.NURSE ---
Pt alert to self and place. Can lift all extremities. Higher on left than right. Has slept well t/o night. BP elevated this AM. Other VSS. Pt remains paced on telemetry. has remained at bedside. Education provided to pt and about importance on participating with PT and getting up to chair. Encouraged to get up this AM for breakfast. call light within reach. Safety measures in place.
[2022-07-23 04:15] VITALS: BMI 27.9
--- NOTE | 2022-07-23 06:43 | PC.NURSE ---
Pt continues to be alert to person and place. Does not know the date/time/year. Ambulated with assistance to the chair this AM. Awaiting breakfast.
[2022-07-23 08:00] VITALS: BP 168/96; PULSE 60; RESP 14; TEMP 36.6; O2SAT 93
[2022-07-23 08:32] LABS: Basophils # 0.2 K/mm3 (0-0.2); Basophils % 1.5 % (0.1-2.0); Eosinophils # 0.3 K/mm3 (0.0-0.4); Eosinophils % 2.8 % (0.1-12.0); Hematocrit 50.4 % (42.0-52.0); Hemoglobin 17.2 g/dL (14.1-18.0); Lymphocytes # 2.7 K/mm3 (0.7-4.5); Mean Corpuscular HGB Conc 34.1 g/dL (31.8-35.4); Mean Corpuscular Hemoglobin 30.8 pg (27.0-31.2); Mean Corpuscular Volume 90.3 fl (80-94); Mean Platelet Volume 10.7 fl (7.4-10.4); Monocytes # 0.6 K/mm3 (0.1-1.0); Monocytes % 6.4 % (1.7-9.3); Neutrophils # 5.8 K/mm3 (1.8-7.8); Neutrophils % 61.3 % (37.0-80.0); Platelet Count 150 K/mm3 (142-424); Red Blood Count 5.58 M/mm3 (4.60-6.20); Red Cell Distribution Width 13.6 % (11.5-17.5); White Blood Count 9.5 K/mm3 (4.8-10.8)
[2022-07-23 08:41] LABS: Chloride 101 mmol/L (98-107)
[2022-07-23 08:42] LABS: Potassium 3.3 mmoL/L (3.5-5.1); Sodium 140 mmol/L (136-145)
[2022-07-23 08:45] LABS: Anion Gap 15.3 mEq/L (5-15); Blood Urea Nitrogen 27 mg/dl (9-20); Calcium 8.9 mg/dl (8.4-10.2); Carbon Dioxide 27 mmol/L (22.0-30.0); Creatinine Clearance Estimated 78 mL/min (50-200); Estimated Glomerular Filt Rate 60 ml/min (>60); GFR (African American) 73 ML/MIN (>60); Glucose 129 mg/dl (74-100)
--- NOTE | 2022-07-23 09:10 | EXP.DC.SUM ---
General Admission date:: 07/22/22 Discharge date: 07/23/22 HPI HPI HPI: this patient presented to patient admitted from cardiology clinic for dizziness & lightheadedness present pretty constant now, blurry vision present at times. He states he is feeling really bad right now and he hasn't had his BP meds for several days.? Blood pressure this morning 140s/70s, he denies any chest pain, shortness of breath, dizziness, or lightheadedness.? is present in room Hx of subclavian artery stenosis with stenting at [facility] in [place] 10/11. pt was seen by card- CAD is present and likely stable. Hx of [place] to LAD and diagonal arteries. On ASA. Denies cp & pressure Denies SOB Dizziness & lightheadedness present pretty constant now, blurry vision present at times. He states he is feeling really bad right now and he hasn't had his BP meds for several days. Hx of subclavian artery stenosis with stenting. JESUS ALBERTO is present. hx of right carotid stent. Hx of carotid endarectomy in 09/2021 at , we have requested the report. BP is too high today. Weight is up 6 pounds. LDL goal is < 55, LDL is not on file. PPM in place and D/L today showed: AP 73%, AT/AF [place] <1%, no events, battery life of 28 months. DM is present and followed by PCP. Tobacco user. Tobacco cessation advised. EKG is A-pacing, possible inferior infarct, age undetermined, rate is 81 bpm. Due to the patient's malignant HTN will get him admitted to Dr. Keller to get better control of BP. Hospital Course Hospital Course Hospital Course: pt was admitted and treated for htn - 1.? Patient admitted for malignant hypertension.? Improved control on Coreg 25 mg twice daily and Norvasc 5 mg daily. 2.? Peripheral vascular disease with history of subclavian artery stenosis and carotid artery stenosis.? Medical therapy recommended, 08/2021. 3.? Coronary artery disease with history of coronary stenting, continue Plavix 75 mg daily. 4.? History of GERD, continue PPI therapy 5.? History of CKD with bilateral renal artery stenosis, status post bilateral renal artery stenting yesterday.? Today creatinine 1.4And GFR 50. 6.? Hypertriglyceridemia and dyslipidemia. Resume fenofibrate. pt ANGIOGRAPHIC RESULTS Right renal artery has an ostial 90% stenosis Left renal artery has an ostial 70% hazy stenosis IMPRESSION Severe bilateral renal artery stenosis Successful stenting of the right and left renal artery severe disease reduced to 0% with 1 bare-metal stent placed in each renal artery PLAN 1. Dual antiplatelet for 1 month then discontinuation of Plavix 2. Restart JORY inhibitor's as blood pressure will allow 3. Continue with carvedilol 4. Continue risk factor modification pt had epeisode of aphasia and paralysis on rt after procedure and required pressors and heparin but improved and weaned off meds and has been doing better - will diet and activity and vital signs improed with elevated systolic bp - Assessment and Plan for All Diagnoses:: 1.? Patient admitted for malignant hypertension.? Bilateral renal artery stenosis status post bilateral stenting.? Subsequent significant drop in blood pressure for which medications were decreased and some eliminated with the need for transient Campbell-Synephrine drip and vasopressin drip which is currently being weaned down.? Exacerbation of prior CVA symptoms with hypotension noted.? Patient seems to tolerate a blood pressure of 150 or higher with no recurrence of those symptoms. 2.? Peripheral vascular disease with history of subclavian artery stenosis and carotid artery stenosis.? Medical therapy recommended, 08/2021. 3.? Coronary artery disease with history of coronary stenting, continue Plavix 75 mg daily. 4.? History of GERD, continue PPI therapy 5.? History of CKD with bilateral renal artery stenosis, status post bilateral renal artery stenting yesterday.? Today creatinine 1.4And GFR 50. 6.? Hypertriglyceridemia and dyslipidemia. Resume fenofibrate. 7.? Prior CVA with right
--- NOTE | 2022-07-23 09:37 | HMH.PHACL ---
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 FENOFIBRATE FOR HYPERLIPIDEMIA PER CARDIOLOGY. PATIENT VERBALIZED UNDERSTANDING AND HAD NO QUESTIONS AT THIS TIME. -GEOFFREY BUCKNER, SHAYAND
--- NOTE | 2022-07-23 10:01 | PC.NURSE ---
THIS MORNING ON ASSESSMENT PT WAS ALERT AND ORIENTED X3. VERBALLY STATED NAME, AND HE WAS AT [facility]. WHEN PT IS ASKED ABOUT THE YEAR AND MONTH HE JUST SHAKES HIS HEAD NO. PT'S RIGHT SIDED RUBBER BLOCK LAYER WAS WEAK. WHEN PT WAS ASKED TO WIGGLE HIS TOES AND RAISE EACH LEG HE JUST POINTED HIS LEFT FINGER AND SHOOK HIS HEAD NO HOWEVER WHEN PT WAS ASKED TO VERBALLY RESPOND NO HE WOULD THEN WITH DIRECT EYE CONTACT GIVE A BLANK STARE. AFTER A LONG DISCUSSION WITH PT'S WHO WAS AT BEDSIDE AT THE TIME OF ASSESSMENT STATED THEY WERE WANTING TO GO HOME TODAY. STATED HE HAD THESE SAME SYMPTOMS LAST SEPTEMBER AND WITH THE HELP OF BOTH OF THEIR SONS AT HOME PT WAS ABLE TO GET BACK ON HIS FEET. WHEN PT AMBULATED TO THE BATHROOM TO HAVE A BOWEL MOVEMENT IT TOOK 1 ASSIST. PT DID HAVE SOME MILD WEAKNESS WITH MOVING HIS RIGHT LEG. PT TOLERATED SITTING UP IN THE CHAIR THIS MORNING. HAS BEEN EATING AND DRINKING WELL. WHEN DID ROUNDS PT'S NORVASC WAS RESTARTED AND HE STATED THAT PT NEEDED TO FOLLOW UP WITH CARDIOLOGY THIS WEEK. STATED SHE WOULD CALL OFFICE IN THE MORNING TO GET APPOINTMENT.
--- NOTE | 2022-07-24 13:25 | CARE MANAGER ---
Spoke with patient , for post-discharge phone interview. No questions or issues.
== END 2022-07-23 10:20 | disposition home or self-care (01) | DRG 982 ==
PROVIDERS: Family Medicine; Internal Medicine; Nurse Practitioner Family; Physician Assistant; Admitting Provider Emergency Medicine; PCP Nurse Practitioner; Visit Provider Emergency Medicine
DX: I63.9 Cerebral infarction, unspecified (principal); I69.351 Hemiplegia and hemiparesis following cerebral infarction affecting right dominant side; R47.01 Aphasia; I70.1 Atherosclerosis of renal artery; I65.23 Occlusion and stenosis of bilateral carotid arteries; E78.1 Pure hyperglyceridemia; Z95.0 Presence of cardiac pacemaker; I10 Essential (primary) hypertension; I25.10 Atherosclerotic heart disease of native coronary artery without angina pectoris; I77.1 Stricture of artery; E78.5 Hyperlipidemia, unspecified; I69.320 Aphasia following cerebral infarction
CPT/HCPCS: 36415; 37236; 70450; 70496; 70498; 76770; 80048; 80053; 80061; 82140; 84436; 84443; 84479; 85007; 85025; 85347; 85730; 92610; 93005; 93976; 97162; 97166; 99152; C1725; C1760; C1769; C1876; C1894; C9803; G0378; J1610; J1644; Q9967; U0003; U0005